=== PATIENT | female | born 1955 | race Caucasian/White ===

== ENCOUNTER 2016-08-29 21:03 | Inpatient (IN) | payer OTHER ==
[~2016-08-29] VITALS: Ht 170.2 cm; Wt 80.9 kg
--- NOTE | ~2016-08-29 | EC ---
PATIENT:ALFREDO SHELTON DATE OF SERVICE: 08/29/16 SEX: F MEDICAL RECORD: [id number] DATE OF : [birth year] LOCATION:D.M2 D.212 AGE OF PATIENT: 61 ADMISSION DATE: 08/29/16 REFERRING PHYSICIAN: INTERPRETING PHYSICIAN: MOE PALOMINO M.D. ECHOCARDIOGRAM REPORT ECHO CHARGES 4 ECHO COMPLETE CLINICAL DIAGNOSIS: ANASARCA ECHOCARDIOGRAPHIC MEASUREMENTS (adult normal given) AC root (d.<3.7cm) 3.1 LV Septum d (<1.2 cm> 1.3 Valve Excursion 1.9 LV Septum (systole) 2.1 Left Atria (s.<4.0cm> 4.6 LVPW d(<1.2cm) 1.3 RV (d.<2.3cm) 2.1 LVPW (sytole) 2.0 LV diastole(<5.6CM) 6.0 MV E-F(>70mm/sec) LV systole 3.2 LVOT Diameter 1.8 MV exc.(>10mm) Est.ejection fraction (50-75%) Pericardial Effusion N DOPPLER: LVIT A 130 E 88.0 LA RVSP 59.4 LVOT 109 AOP1/2T Asc. Ao 181 RVOT 94.0 RA PA 110 AV Gradient Peak 13.1 AV Mean 5.9 AV Area 1.5 MV Gradient Peak 6.8 MV Mean 2.1 MV Area COMMENTS: Grill Attendant: Yanna PATELOE Nuclear Reactor Technician:Ulices Palomino TAPE# PACS DATE OF SERVICE: 08/30/2016 REFERRING PHYSICIAN: John Delgado DO. INDICATION: Anasarca. DESCRIPTION: Left ventricle is mildly dilated. There is moderate LV dysfunction noted. Estimated ejection fraction is in the order of 25%-30%. Mitral valve is structurally normal. There is mild regurgitation noted. Left atrium is mildly dilated. The aortic valve is trileaflet. I do not see any ECHOCARDIOGRAM REPORT [id number] ALFREDO SHELTON stenosis or regurgitation. Right ventricle is normal in size and function. Tricuspid valve is structurally normal. There is mild regurgitation noted. Right ventricular systolic pressure is elevated at 59 mmHg. There is no pericardial effusion seen. IMPRESSION: 1. Moderate left ventricular dysfunction with ejection fraction 25%-30% consistent with cardiomyopathy. 2. Mild mitral regurgitation. 3. Moderate tricuspid regurgitation with elevated pulmonary pressures. TRANSINT:[id number] Voice Confirmation ID: [id number] DOCUMENT ID: [id number] MOE PALOMINO M.D. CC: [id number] DICTATION DATE: 08/30/16 153 PROGRESSIVE DIE MAKER: 08/30/16 1614 ADM IN [facility] [address] [place] [address]
[2016-08-29 21:37] LABS: BASOPHILS 0.3 % (0-2); EOSINOPHILS 1.2 % (0-7); HEMATOCRIT 40.4 % (36.0-48.0); HEMOGLOBIN 13.1 g/dL (12-16); IMMATURE GRANULOCYTES 0.4 % (0-5); LYMPHOCYTES 9.1 % (15-50); MCH 30.5 pg (26.0-34.0); MCHC 32.4 g/dL (31.0-37.0); MCV 94.2 fL (80.0-100.0); MEAN PLATELET VOLUME 10.1 fL (7.4-10.4); MONOCYTES 8.4 % (2-11); NEUTROPHILS 80.6 % (40-80); PLATELET COUNT 300 10x3/uL (130-400); RBC 4.29 10x6/uL (4.00-5.40); WBC 10.5 10x3/uL (4.8-10.8)
[2016-08-29 21:52] LABS: ALBUMIN 1.7 g/dL (3.4-5.0); ALKALINE PHOSPHATASE 344 U/L (46-116); ALT (SGPT) 33 U/L (10-68); BILIRUBIN - TOTAL 3.05 mg/dL (0.2-1.3); CALC OSMOLALITY 295 mosm/kg (275-300); CALCIUM 8.5 mg/dL (8.5-10.1); CARBON DIOXIDE 32.3 mmol/L (21.0-32.0); CHLORIDE - SERUM 107 mmol/L (98-107); GLUCOSE 102 mg/dL (74-106); POTASSIUM - SERUM 4.4 mmol/L (3.5-5.1); PROTEIN - SERUM 5.8 g/dL (6.4-8.2); SODIUM 145 mmol/L (136-145); UREA NITROGEN 31 mg/dL (7-18); eGFR NON AFRICAN AMERICAN 60 mL/min (90-120)
[2016-08-29 22:15] LABS: CKMB 10.8 U/L (0.0-3.6); CREATINE KINASE 275 UL (21-215); PRO BNP 13639 pg/mL (0-125)
[2016-08-29 22:19] LABS: TROPONIN-I 2.442 ng/mL (0.000-0.060)
[2016-08-29 22:56] LABS: COLOR AMBER (YELLOW)
[2016-08-29 22:57] LABS: APPEARANCE HAZY (CLEAR); BILIRUBIN NEGATIVE (NEGATIVE); GLUCOSE NEGATIVE (NEGATIVE); KETONE NEGATIVE (NEGATIVE); LEUKOCYTE ESTERASE TRACE (NEGATIVE); NITRITE NEGATIVE (NEGATIVE); PROTEIN 3+ mg/dL (NEGATIVE)
[2016-08-29 22:58] LABS: AMORPHOUS SEDIMENT <1+ /lpf (NONE SEEN); BACTERIA FEW /hpf (NONE SEEN); EPITHELIAL CELLS 0-5 /hpf (0-5); GRANULAR CAST 0-5 /lpf (NONE SEEN); HYALINE CAST 0-5 /lpf (NONE SEEN); RED CELLS - URINE 0-5 /hpf (0-5); WHITE CELLS - URINE 0-5 /hpf (0-5)
--- NOTE | 2016-08-30 00:39 | NUR ---
REPORT RECEIVED FROM KHRIS PASCUAL.
--- NOTE | 2016-08-30 01:07 | NUR ---
ARRIVED TO FLOOR VIA STRETCHER, ACCOMPANIED BY HOSPITAL STAFF. ORIENTED TO UNIT. PLACED ON TELEMETRY. CLL LIGHT IN REACH. WILL CONTINUE TO MONITOR. SEE NURSE ASSESSMENT.
[2016-08-30 04:00] VITALS: BP 137/74
[2016-08-30 08:00] VITALS: BP 132/74
--- NOTE | 2016-08-30 08:23 | NUR ---
ASSESSMENT COMPLETED. DENIES ANY NEEDS. TELEMERTY SHOWS SR 82. O2 AT 2 L/M PER NC. RIGHT AC IV WITH NS AT 100. AVIAL CATH PATENT TO GRAVITY BAG. EDEMA TO LOWER LEGS BILATERAL. REDNESS TO BUTTOCKS BUT NO BREAKDOWN WILL MONITOR
[2016-08-30 09:19] LABS: INR 1.43 (0.85-1.17); PROTIME 17.4 SECONDS (11.6-15.0)
[2016-08-30 09:24] LABS: T4 THYROXIN - FREE 1.77 ng/dL (0.76-1.46); THYROID STIMULATING HORMONE 3.01 uIU/mL (0.36-3.74)
--- NOTE | 2016-08-30 10:47 | NUR ---
RESTING QUIETLY VISITING WITH SISTER DENIES ANY NEEDS AT THIS TIME NAD NOTED
[2016-08-30 11:46] VITALS: BP 144/92
--- NOTE | 2016-08-30 12:58 | NUR ---
LYING QUIETLY. VISITORS AT BEDSIDE. NO NEEDS VOICED. WILL MONITOR
[2016-08-30 13:14] VITALS: Ht 170.2 cm; Wt 80.9 kg
--- NOTE | 2016-08-30 14:34 | NUR ---
HOB UP TALKING WITH VISITORS. DENIES ANY NEEDS. CALL LIGHT IN REACH WITH SR UP. WILL MONITOR
[2016-08-30 16:00] VITALS: BP 143/76
--- NOTE | 2016-08-30 16:00 | NUR ---
SCD'S ON BILATERAL LE
--- NOTE | 2016-08-30 17:49 | HP ---
PATIENT: ALFREDO SCHILLING MEDICAL RECORD: [id number] ACCOUNT: [id number] LOCATION:[address] : [birth year] ADMISSION DATE: 08/29/16 HISTORY AND PHYSICAL EXAMINATION HISTORY OF PRESENT ILLNESS: Ms. Schilling is a 61-year-old white female that was brought into the Emergency Room by medical services with severe anasarca, states she has not gotten out of bed for the last 9 days. Her sister came to check on her and called EMS. Swelling started 5-6 weeks ago, this started in her feet first, but has gradually worsened. She works at [employer]. She has not been able to work in a couple of weeks, wet the bed about 9 days ago and has not drink anything since then. She has elevation of her cardiac enzymes in liver function tests. She denies actually any chest pain or shortness of breath, except orthopnea. She has swelling up to the mid chest. States she drinks alcohol, a couple of beers a couple of times a week, but does not sound like really any heavy drinking. She denies any palpitations. She states she has not seen a doctor in 30 years. She takes no medications and has had no surgeries or medical issues in the past. She is comfortable right now. She is being admitted for further evaluation of her anasarca. PAST MEDICAL HISTORY: Unremarkable. PAST SURGICAL HISTORY: None. ALLERGIES: None. MEDICATIONS: None. FAMILY HISTORY: She has a sister, she is unaware of her health. Mother had hypertension. Father had diabetes and eventually ended up on dialysis. SOCIAL HISTORY: She is single. She lives alone. She works at [employer] She does not smoke. She denies any history of previous or current drug use. She states that she drink a couple beers a couple of times a week, depending on what kind of work she had. She has no children and her closest family is her sister that lives in [facility]. REVIEW OF SYSTEMS: She may have had some fever when this first started. She denies any cough. She denies any chest pain. She denies any palpitations. She does have orthopnea. She has marked edema. She has had a significant weight gain over the last 5-6 weeks. She states that she has recently had some constipation since she turned 61. Her urine output has been about the same. She denies any really seen in the way of pain. PHYSICAL EXAMINATION: HEENT: Head is normocephalic, sclerae nonicteric. NECK: Soft and supple without bruit. HEART: Regular without murmur, rub or gallop. LUNGS: With diminished breath sounds. ABDOMEN: Soft. She has marked edema from her lower extremities all the way up to mid abdomen and lower chest. No bruits were heard. NEUROLOGIC: Without any gross focal deficits. Mood and affect appear normal at this time. IMPRESSION: Anasarca, rule out congestive heart failure versus cirrhosis versus HISTORY AND PHYSICAL [id number] SCHILLING,ALFREDO protein malnutrition versus carcinomatosis versus other causes. Her BUN is elevated, but her creatinine is 1, but overall I do not think her kidney is an issue here. We will check an echo. We will check ultrasound. Check thyroid function. See orders for rest of the plan. TRANSINT:[id number] Voice Confirmation ID: [id number] DOCUMENT ID: [id number] MOJGAN BENTLEY DO at 1749 CC: [id number] DICTATION DATE: 08/30/16 0840 DIRECTOR RIVER RESTORATION: 08/30/16 1022 ADM IN [facility] [address] [place] [address]
--- NOTE | 2016-08-30 18:23 | NUR ---
HOB UP EATING. IV INFUSING WELL. SCDS ON. TELEMERTY SHOWS SR. WILL MONITOR
[2016-08-30 20:28] VITALS: BP 137/64
[2016-08-30 23:54] VITALS: BP 139/73
--- NOTE | 2016-08-31 00:29 | NUR ---
PT IV TO RIGHT AC OUT. SITE FOUND TO BE LEAKING AND CATH TIP UNDER DRESSING AND ON TOP OF PT'S SKIN. SITE CLEANSED. LEFT WRIST 22 GA X1 STICK PLACED, PT KAYLEE WELL. DRESSING PER POLICY. WILL MONITOR.
[2016-08-31 04:05] VITALS: BP 133/70
[2016-08-31 08:16] VITALS: BP 146/82
--- NOTE | 2016-08-31 10:00 | NUR ---
ALERT AND ORIENTED X4. RESTING IN BED. AVILA DRAINING BY GRAVITY AT BEDSIDE. SINUS RHTHYM 78bpm ON TELEMETRY. FAMILY AT BEDSIDE. FAMILY REQUEST TO SPEAK WITH CASE MANAGEMENT REGUARDING LIVING ARRANGEMENTS WHEN DISCHARGED. FAMILY DENIES PATIENT ABLE TO STAY WITH THEM. [place], DENTAL SCHEDULER NOTIFIED. DENIES PAIN OR SOB. CONTINUE PLAN OF CARE AND SAFETY PRECAUTIONS.
[2016-08-31 11:51] VITALS: BP 150/81
[2016-08-31 14:28] LABS: BASOPHILS 0.6 % (0-2); HEMATOCRIT 38.5 % (36.0-48.0); HEMOGLOBIN 12.7 g/dL (12-16); IMMATURE GRANULOCYTES 0.4 % (0-5); LYMPHOCYTES 13.2 % (15-50); MCH 30.8 pg (26.0-34.0); MCV 93.2 fL (80.0-100.0); MEAN PLATELET VOLUME 10.1 fL (7.4-10.4); MONOCYTES 7.3 % (2-11); NEUTROPHILS 73.5 % (40-80); RBC 4.13 10x6/uL (4.00-5.40); RDW 14.2 % (11.5-14.5)
[2016-08-31 14:32] LABS: PLATELET COUNT 237 10x3/uL (130-400); WBC 6.8 10x3/uL (4.8-10.8)
[2016-08-31 15:08] LABS: ALBUMIN 1.8 g/dL (3.4-5.0); BILIRUBIN - TOTAL 1.94 mg/dL (0.2-1.3); CALCIUM 7.6 mg/dL (8.5-10.1); CREATININE - SERUM 1.2 mg/dL (0.6-1.3); PROTEIN - SERUM 5.5 g/dL (6.4-8.2)
[2016-08-31 15:10] LABS: ANION GAP 5.1 mmol/L (8-16); POTASSIUM - SERUM 3.1 mmol/L (3.5-5.1)
[2016-08-31 16:42] VITALS: BP 183/96
--- NOTE | 2016-08-31 16:56 | NUR ---
Patient Name: ALFREDO SHELTON Admission Status: ER Accout number: [id number] Admission Date: 08-29-2016 : 1955 Admission Diagnosis:GENERALIZED EDEMA Attending: ZEUS Current LOS: 2 Anticipated DC Date: Planned Disposition: Home Primary Insurance: MESSI Discharge Planning Comments: * Is the patient Alert and Oriented? Yes 0 * How many steps to enter\exit or inside your home? 10 0 * PCP UNKNOWN PRIMARY CARE DOCTOR; HAS BEEN TO DOCTOR IN RECENT HISTORY 0 * Pharmacy [facility] [address] * Preadmission Environment Home Alone 0 * ADLs Independent 0 * Equipment None 0 * Other Equipment NO MEDICAL EQUIPMENT PROVIDER PREFERENCE 0 * List name and contact numbers for known caregivers / representatives who currently or will assist patient after discharge: MARKELL LOPEZ, SISTER, [address] [place] [address], [place], 0 * Community resources currently utilized None 0 * Please name any agencies selected above. NONE 0 * Additional services required to return to the preadmission environment? Yes * Can the patient safely return to the preadmission environment? No 0 * Has this patient been hospitalized within the prior 30 days at any hospital? No 0 ON 08-30-16, KILEY RECEIVED CALL FROM SABINA ROBINS, , OF [facility] WHO REPORTS HAVING OPEN REFERRAL ON PATIENT; SABINA WILL BE TO HOSPITAL TODAY TO MEET WITH PT AND COLLECT MEDICAL RECORDS. SABINA OF [facility] ARRIVED, MET WITH PT AND ADVISED CM THAT SHE HAS MET WITH PT AND FAMILY, PT AND FAMILY ARE IN AGREEMENT THAT PT WILL DISCHARGE TO HER SISTER'S HOME, MARKELL LOPEZ AT [address] [place] [address] PT'S HOME IS NO LIVEABLE. CM PROVIDED BASIC MEDICAL INFORMATION TO SABINA OF [facility]. [facility] IS NOT TAKING HOLD ON PATIENT AT THIS TIME. KILEY SPOKE TO ALFREDO HOLDER, NURSE THEATER USHER FOR PT'S EMPLOYER; THEY WILL PROVIDE PT'S INSURANCE INFORMATION TO HOSPITAL AND ASSIST WITH PROVIDING IN NETWORK PROVIDERS FOR SERVICES IF PT NEEDS ANYTHING. ALFREDO WILL PROVIDE PT WITH [facility] PAPERWORK. CM MET WITH PT AND FAMILY ON 08-31-16 IN ROOM AT FAMILY REQUEST. PT REPORTS SHE WAS LIVING AT HOME ALONE AND INDEPENDENTLY WITH NO MEDICAL EQUIPMENT OR OUTSIDE SERVICES. PT HAS NOT BEEN TO THE DOCTOR FOR MOST OF HER ADULT LIFE. PT GOT SICK AND WAS LAID UP IN BED FOR ABOUT 7 DAYS AND WAS CORRECTED BY HER SISTER WHO REPORTS PT WAS NOT OUT OF BED FOR TWO WEEKS. 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 PT REPORTS PLAN TO DISCHARGE TO HER SISTER'S HOME ON [address] AND THEY ARE GOING TO HELP HER GET SET UP IN A PLACE OF HER OWN. PT'S SISTER AGREED WITH PLAN. CM LEFT ROOM, PT'S SISTER, BROTHER IN LAW AND ROMAN FOLLOWED CM OUT OF THE ROOM AND SPOKE TO PT IN HALLWAY. FAMILY REPORTS PT CANNOT COME TO THEIR HOUSE AT DISCHARGE. PT'S BROTHER IN LAW BEGAN INFORMING CM THAT PT IS MENTALLY ILL AND INFORMING CM OF THE CONDITION OF PT'S HOME. CM EXPLAINED THAT CM HAS BEEN TOLD ABOUT THE HOME; CM INFORMED FAMILY THAT PT NEEDS TO BE TOLD THAT SHE CANNOT GO TO THE SISTER'S HOME SO THAT PT AND CM CAN MOVE ON WITH DISCHARGE PLANNING. FAMILY FORCEFULLY DIRECTED CM TO NOT TELL PT AND THAT THEY HAVE ENOUGH BACKBONE TO DO IT THEMSELVES, JUST THAT NOW IS NOT THE TIME. 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 CM EXPLAINED THAT DISCHARGE PLANNING NEEDS TO BEGIN NOW AND NOT WAIT UNTIL THE DAY BEFORE OR THE DAY OF DISCHARGE, THAT CM MAY BE ABLE TO DIRECT PT ON WHERE TO SEEK HOUSING. PT'S SISTER REPORTS SHE IS GOING TO TRY TO HELP PT GET INTO THE [employer] OR SOMEWHERE LIKE THAT AND THEY WILL TELL THE PT THAT SHE IS NOT COMING TO THEIR HOME. CM NOTIFIED SABINA SHIMON OF [facility]. CM PROVIDED PT WITH [facility] AUTHORITY APPLICATION FOR HOUSING ALONG WITH CM CONTACT INFORMATION. CM WAITING FAMILY TO MAKE DECISION ON IF PT CAN COME TO SISTERS' HOME AT DISCHARGE AND IF NOT, TO NOTIFY PT OF THIS SO THAT PT AND CM CAN DEVELOP FURTHER DISCHARGE PLANS TO MEET PT'S NEEDS. Electronic Heat Seal Operator: Dariusz Dubose
--- NOTE | 2016-08-31 18:14 | NUR ---
ALERT AND ORIENTED X4. SITTING UP IN BED. DENIES NEEDS. NO CHANGE. CONTINUE PLAN OF CARE AND SAFETY PRECAUTIONS. SCDs ON.
[2016-08-31 20:29] VITALS: BP 135/77
[2016-09-01 00:10] VITALS: BP 164/87
--- NOTE | 2016-09-01 03:09 | NUR ---
THIS PM, PT AWAKE AND ALERT. CO LEG PAIN. GENERALIZED EDEMA NOTED. COOL AND DRY WILL CONTINUE TO MONITOR.
[2016-09-01 05:28] VITALS: BP 157/81
[2016-09-01 06:03] LABS: BASOPHILS 0.5 % (0-2); EOSINOPHILS 4.9 % (0-7); HEMATOCRIT 38.7 % (36.0-48.0); HEMOGLOBIN 12.7 g/dL (12-16); IMMATURE GRANULOCYTES 0.3 % (0-5); LYMPHOCYTES 16.2 % (15-50); MCH 30.2 pg (26.0-34.0); MCHC 32.8 g/dL (31.0-37.0); MCV 91.9 fL (80.0-100.0); MEAN PLATELET VOLUME 10.6 fL (7.4-10.4); MONOCYTES 7.9 % (2-11); NEUTROPHILS 70.2 % (40-80); PLATELET COUNT 220 10x3/uL (130-400); RBC 4.21 10x6/uL (4.00-5.40); RDW 13.9 % (11.5-14.5); WBC 6.3 10x3/uL (4.8-10.8)
[2016-09-01 06:32] LABS: ALBUMIN 1.7 g/dL (3.4-5.0); CALCIUM 7.9 mg/dL (8.5-10.1); CREATININE - SERUM 1.2 mg/dL (0.6-1.3); PROTEIN - SERUM 5.7 g/dL (6.4-8.2)
[2016-09-01 08:20] VITALS: BP 185/96
[2016-09-01 12:27] VITALS: BP 145/75
[2016-09-01 16:02] VITALS: BP 163/79
--- NOTE | 2016-09-01 19:57 | NUR ---
RESTING IN BED. ALERT/ORIENTED. SR PER TELEMETRY. AVILA PATENT TO BEDSIDE DRAIN. IV TO LEFT WRIST WITH BUMEX DRIP AT 10ML/HR. SEE ASSESSMENT. CPOC.
[2016-09-01 20:00] VITALS: BP 123/70
--- NOTE | 2016-09-01 22:17 | NUR ---
HS MEDS GIVEN. BUMEX DRIP AT 10ML/HR INFUSING. AVILA PATENT TO BEDSIDE DRAIN BAG. CPOC.
[2016-09-02] VITALS (11 sets, daily range): BP systolic 122–143; BP diastolic 56–77
[2016-09-02 06:26] LABS: BASOPHILS 0.5 % (0-2); EOSINOPHILS 4.4 % (0-7); HEMATOCRIT 36.7 % (36.0-48.0); HEMOGLOBIN 12.3 g/dL (12-16); IMMATURE GRANULOCYTES 0.4 % (0-5); LYMPHOCYTES 14.3 % (15-50); MCH 30.8 pg (26.0-34.0); MCHC 33.5 g/dL (31.0-37.0); MCV 91.8 fL (80.0-100.0); MEAN PLATELET VOLUME 10.9 fL (7.4-10.4); MONOCYTES 7.7 % (2-11); NEUTROPHILS 72.7 % (40-80); PLATELET COUNT 231 10x3/uL (130-400); WBC 7.6 10x3/uL (4.8-10.8)
[2016-09-02 06:43] LABS: ALBUMIN 1.6 g/dL (3.4-5.0); BILIRUBIN - TOTAL 1.9 mg/dL (0.2-1.3); CALCIUM 7.7 mg/dL (8.5-10.1); CARBON DIOXIDE 38.8 mmol/L (21.0-32.0); CREATININE - SERUM 1.2 mg/dL (0.6-1.3); PROTEIN - SERUM 5.6 g/dL (6.4-8.2)
[2016-09-02 06:46] LABS: ANION GAP 3.2 mmol/L (8-16)
--- NOTE | 2016-09-02 08:05 | NUR ---
ASSESSMENT DONE. DENIES NEEDS.
--- NOTE | 2016-09-02 09:09 | NUR ---
UP TO CHAIR WITH PT ASSIST. CALL LIGHT IN REACH. WILL CONT. PLAN OF CARE.
[2016-09-02 10:19] LABS: HEPATITIS C ANTIBODY <0.1 (0.0-0.9)
[2016-09-02 10:56] LABS: INR 0.98 (0.85-1.17); PROTIME 12.8 SECONDS (11.6-15.0)
--- NOTE | 2016-09-02 13:12 | NUR ---
Nutrition follow-up: Diet: low sodium, 50 gm protein diet PO intake has been 50-75% of meals Labs reviewed no new wt to assess PO intake has been fair to good at meals. Will continue to provide food choices with selective menus and honor food preferences within diet restictions. RDN following.
--- NOTE | 2016-09-02 15:39 | NUR ---
RETURN FROM IR PER BED. DRSG X 2 TO RT LOWER QUAD.
--- NOTE | 2016-09-02 17:42 | NUR ---
Patient Name: ALFREDO SHELTON Encounter No: [id number] : 1955 Primary Insurance: MESSI Anticipated DC Date: Planned Disposition: [facility] FACILITY External Planned Provider: [facility], COMMERCIAL INSURANCE REHAB BED DCP follow-up note: CM SPOKE TO SABINA ROBINS OF [facility], PT IS NOT GOING HOME WITH HER SISTER AND FAMILY IS ASSISTING PT WITH FINDING AND APARTMENT FOR HERSELF. CM RECEIVED CALL FROM QUINN OF PT'S INSURANCE CASE MANAGEMENT, , EXT. [phone], WHO CALLED PT AND DISCUSSED REHAB OPTIONS, FAXED CM LIST OF APPROVED [facility] FACILITIES COVERED BY PT'S INSURANCE: [facility], [facility], [facility] AND [facility]. PT HAS UNTIL SEPTEMBER 09 TO SUBMIT HER [facility] PAPERWORK TO HER EMPLOYER IF SHE WISHES TO PROTECT HER JOB. CM DISCUSSED ABOVE INFORMATION WITH PT, PT THINKS SHE WILL GET WELL ENOUGH TO DISCHARGE WITHOUT REHAB, BUT WOULD LIKE CM TO SEND REFERRAL TO [facility] IN CASE SHE NEEDS IT. CHOICE SIGNED. CM FAXED REFERRAL TO [facility], . KILEY WAITING ADMISSION DETERMINATION FROM [facility] IN [place] FOR REHAB. Dariusz Dubose, CASE MANAGEMENT
[2016-09-03 00:23] VITALS: BP 125/57
[2016-09-03 04:13] VITALS: BP 124/50
[2016-09-03 06:00] LABS: BASOPHILS 0.2 % (0-2); EOSINOPHILS 4.6 % (0-7); HEMATOCRIT 33.7 % (36.0-48.0); HEMOGLOBIN 11.3 g/dL (12-16); IMMATURE GRANULOCYTES 0.3 % (0-5); LYMPHOCYTES 14.4 % (15-50); MCH 30.8 pg (26.0-34.0); MCHC 33.5 g/dL (31.0-37.0); MCV 91.8 fL (80.0-100.0); MEAN PLATELET VOLUME 11.1 fL (7.4-10.4); MONOCYTES 8.3 % (2-11); NEUTROPHILS 72.2 % (40-80); PLATELET COUNT 210 10x3/uL (130-400); RBC 3.67 10x6/uL (4.00-5.40)
[2016-09-03 06:18] LABS: ALBUMIN 1.7 g/dL (3.4-5.0); ANION GAP 3.2 mmol/L (8-16); BILIRUBIN - TOTAL 1.9 mg/dL (0.2-1.3); CALCIUM 7.3 mg/dL (8.5-10.1); CARBON DIOXIDE 36.9 mmol/L (21.0-32.0); CREATININE - SERUM 1.3 mg/dL (0.6-1.3); POTASSIUM - SERUM 3.1 mmol/L (3.5-5.1); PROTEIN - SERUM 4.8 g/dL (6.4-8.2)
--- NOTE | 2016-09-03 07:00 | NUR ---
PT K+ LEVEL RESULTS 3.1 THIS AM. KCL 40 MEQ PO GIVEN. NEXT POTASSIUM REDRAW ORDERED FOR 11:00 AM.
[2016-09-03 08:08] VITALS: BP 129/52
--- NOTE | 2016-09-03 08:16 | NUR ---
SITTING UP IN BED EATING BREAKFAST. NO DISTRESS
--- NOTE | 2016-09-03 09:50 | NUR ---
Patient Name: ALFREDO SHELTON Encounter No: [id number] : 1955 Primary Insurance: MESSI Anticipated DC Date: Planned Disposition: RESIDENTIAL FACLILITY External Planned Provider: [facility], [employer] INSURANCE REHAB BED DCP follow-up note: CM MET WITH PT IN ROOM, PROVIDED WELCOME LETTER TO PT FROM HER INDUSTRIAL REFRIGERATION MECHANIC, KOBE BAILEY, , EXT [phone]; PT SIGNED AUTHORIZATION TO PARTICIPATE IN CASE MANAGMENT WITH LIAM AND ILANA. COPY TO PT, ORIGINAL TO CHART. CM INFORMED PT THAT THE REFERRAL TO [facility] FOR REHAB WAS SENT LAST NIGHT, WAITING ON REVIEW AND INSURANCE AUTHORIZATION. PT IN AGREEMENT WITH DISCHARGE PLAN TO REHAB, "IF" SHE NEEDS IT. PT STILL THINKING THAT SHE IS GOING TO BE ABLE TO GO TO A NEW APARTMENT SAFELY AT DISCHARGE BUT IS NOT WALKING HOUSEHOLD DISTANCES OR TRANSFERRING WITHOUT ASSISTANCE. ADULT PROTECTIVE SERVICES CONTINUES TO FOLLOW AND WILL BE FOLLOWING UP WITH PT AFTER DISCHARGE. PT'S SISTER IS ASSISTING PT IN LOCATING NEW HOUSING. KILEY WAITING ADMISSION DETERMINATION FROM [facility] IN [place] FOR REHAB. Dariusz Dubose, CASE MANAGEMENT
[2016-09-03 11:24] VITALS: BP 110/53
[2016-09-03 12:17] LABS: ANTINUCLEAR ANTIBODIES DIRECT Positive (Negative); DOUBLE-STRANDED DNA ABS <1 IU/mL (0-9)
[2016-09-03 14:19] LABS: COMPLEMENT C3 108 mg/dL (90-207)
[2016-09-03 15:39] VITALS: BP 116/56
--- NOTE | 2016-09-03 16:04 | NUR ---
Patient Name: ALFREDO SHELTON Encounter No: [id number] : 1955 Primary Insurance: MESSI Anticipated DC Date: Planned Disposition: [facility] FACILITY External Planned Provider: [facility], COMMERCIAL INSURANCE REHAB BED DCP follow-up note: CM CALLED [facility], , SPOKE TO MARINA WHO ADVISED THAT SHE CANNOT FIND THE REFERRAL AND ASKED THAT IT BE REFAXED TO [facility]. CM REFAXED ENTIRE REFERRAL WITH TODAY'S UPDATE TO [facility] AT [phone]. ADULT [facility] SERVICES CONTINUES TO FOLLOW AND WILL BE FOLLOWING UP WITH PT AFTER DISCHARGE. PT'S SISTER IS ASSISTING PT IN LOCATING NEW HOUSING. CM WAITING ADMISSION DETERMINATION FROM [facility] IN [place] FOR REHAB. Dariusz Dubose, CASE MANAGEMENT
[2016-09-03 20:21] VITALS: BP 115/70
[2016-09-04 00:25] VITALS: BP 123/58
[2016-09-04 04:33] VITALS: BP 112/54
[2016-09-04 05:40] LABS: BASOPHILS 0.4 % (0-2); HEMATOCRIT 33.6 % (36.0-48.0); IMMATURE GRANULOCYTES 0.4 % (0-5); LYMPHOCYTES 15.8 % (15-50); MCH 30.1 pg (26.0-34.0); MCHC 32.7 g/dL (31.0-37.0); MCV 92.1 fL (80.0-100.0); MEAN PLATELET VOLUME 11.4 fL (7.4-10.4); MONOCYTES 7.3 % (2-11); NEUTROPHILS 72.1 % (40-80); PLATELET COUNT 224 10x3/uL (130-400); RBC 3.65 10x6/uL (4.00-5.40); RDW 14.2 % (11.5-14.5); WBC 8.2 10x3/uL (4.8-10.8)
[2016-09-04 05:46] LABS: ALBUMIN 1.7 g/dL (3.4-5.0); ANION GAP 4.2 mmol/L (8-16); BILIRUBIN - TOTAL 1.7 mg/dL (0.2-1.3); CALCIUM 7.2 mg/dL (8.5-10.1); CARBON DIOXIDE 36.3 mmol/L (21.0-32.0); CREATININE - SERUM 1.3 mg/dL (0.6-1.3); POTASSIUM - SERUM 3.5 mmol/L (3.5-5.1); PROTEIN - SERUM 4.9 g/dL (6.4-8.2)
--- NOTE | 2016-09-04 07:30 | NUR ---
RESTING QUIETLY RESP UNLABORED NAD NOTED
--- NOTE | 2016-09-04 07:30 | NUR ---
ASSESSMENT COMPLETED. ALERT AND ORINTED. O2 AT 2 L/M PER NC. TELEMERTY SHOWSSR WITH OCC PVCS. AVILA CATH PAINTENT TO GRAVITY BAG, LEFT WRIST WITH NS AT 15 AND BUMEX AT 5. DENIES ANY NEEDS. SR UP WITH CALL LIGHT IN REACH
--- NOTE | 2016-09-04 07:45 | NUR ---
ASSESSMENT COMPLETED. O2 AT AT 2 L/M . LEFT WRIST WITH NS 15 AND BUMEX AT S. AVILA CATH PATENT TO GRAVITY BAG. SR UP WITH CALL LIGHT IN REACH WILL MONITOR
[2016-09-04 08:01] VITALS: BP 137/65
[2016-09-04 11:34] VITALS: BP 149/75
[2016-09-04 15:42] VITALS: BP 155/71
--- NOTE | 2016-09-04 18:04 | NUR ---
LYING QUIETLY. DENIES ANY NEEDS CALL LIGHT IN REACH WITH SR UP
[2016-09-04 18:32] LABS: PROTEIN - BODY FLUID 1.9 G/DL
[2016-09-04 20:00] VITALS: BP 147/68
--- NOTE | 2016-09-04 20:49 | NUR ---
PT RESTING IN BED WITH NO DISTRESS. ALERT/ORIENTED. NONLABORED RESPIRATIONS WITH O2 @ 2L/NC. SR PER TELEMETRY. AVILA PATENT TO BEDSIDE DRAIN BAG. NS @ 15ML/HR AND BUMEX AT 5ML/HR INFUSING TO LEFT WRIST. CALL LIGHT IN REACH.
--- NOTE | 2016-09-04 21:52 | NUR ---
HS MED GIVEN. PT WATCHING TV. CALL LIGHT IN REACH. CPOC.
[2016-09-05 04:00] VITALS: BP 123/61
[2016-09-05 05:38] LABS: BASOPHILS 0.4 % (0-2); EOSINOPHILS 3.4 % (0-7); HEMATOCRIT 34.5 % (36.0-48.0); HEMOGLOBIN 11.3 g/dL (12-16); IMMATURE GRANULOCYTES 0.5 % (0-5); LYMPHOCYTES 16.2 % (15-50); MCH 30.1 pg (26.0-34.0); MCHC 32.8 g/dL (31.0-37.0); MEAN PLATELET VOLUME 11.3 fL (7.4-10.4); MONOCYTES 6.6 % (2-11); NEUTROPHILS 72.9 % (40-80); PLATELET COUNT 228 10x3/uL (130-400); RBC 3.75 10x6/uL (4.00-5.40); RDW 14.1 % (11.5-14.5); WBC 8.5 10x3/uL (4.8-10.8)
[2016-09-05 06:02] LABS: ALBUMIN 1.8 g/dL (3.4-5.0); ANION GAP 3.7 mmol/L (8-16); BILIRUBIN - TOTAL 1.87 mg/dL (0.2-1.3); CALCIUM 7.9 mg/dL (8.5-10.1); CARBON DIOXIDE 39.7 mmol/L (21.0-32.0); CREATININE - SERUM 1.3 mg/dL (0.6-1.3); POTASSIUM - SERUM 3.4 mmol/L (3.5-5.1); PROTEIN - SERUM 5.2 g/dL (6.4-8.2)
--- NOTE | 2016-09-05 07:30 | NUR ---
RESTING QUIETLY EYES CLOSED RESP UNLABORED NAD NOTED
[2016-09-05 08:00] VITALS: BP 119/60
--- NOTE | 2016-09-05 08:07 | NUR ---
ASSESSMENT COMPLETED.TELEMERTY SHOWS SR AT 69.IV TO LEFT AC WITH NS AT 15 AND BUMEX AT 5. AVILA CATH PATENT TO GRAVITY BAG. DENIES ANY NEEDS. SR UP WITH CALL LIGHT IN REACH. WILL MONITOR
[2016-09-05 12:00] VITALS: BP 132/60
[2016-09-05 16:00] VITALS: BP 122/67
[2016-09-05 19:55] VITALS: BP 131/59
[2016-09-05 23:33] VITALS: BP 129/63
[2016-09-06 03:44] VITALS: BP 116/52
--- NOTE | 2016-09-06 06:35 | NUR ---
PT HAS RESTED WELL THIS NIGHT. IV BUMEX INFUSING WITH OUTPUT OF 2200ML URINE THIS SHIFT. CURRENTLY AWAKE/ALERT AND WATCHING TV. VERY PLEASANT AND COOPERATIVE. MONITOR AND CPOC. CALL LIGHT IN REACH.
[2016-09-06 07:39] LABS: CALCIUM 7.9 mg/dL (8.5-10.1); CREATININE - SERUM 1.3 mg/dL (0.6-1.3); POTASSIUM - SERUM 3.6 mmol/L (3.5-5.1)
[2016-09-06 07:45] LABS: ANION GAP 5.6 mmol/L (8-16)
[2016-09-06 08:01] VITALS: BP 130/61
--- NOTE | 2016-09-06 08:48 | NUR ---
AWAKE . EATING BREAKFAST. CO ACHING IN BUTTOCKS. MEDICATED ACCORDINGLY. WILL CONTINUE TO MONITOR.
[2016-09-06 12:09] VITALS: BP 95/46
--- NOTE | 2016-09-06 13:13 | NUR ---
WOUND CARE CONSULT: Pt is c/o her bottom (at the tailbone) being sore. Blanchable redness is noted. There is also some excoriation at gluteal folds. Covered sacral area with mepilex sacral dressing and ordered calmoseptine cream for excoriation. Also ordered an air overlay mattress. Wound care will continue to monitor.
[2016-09-06 16:36] VITALS: BP 118/54
--- NOTE | 2016-09-06 16:49 | NUR ---
Rehab Note- Acute Rehab Prescreen order received. The patient has [employer] insurance and will need a PreAuth from insurance prior to acute rehab stay. Brennen start PreAuth process. Thank you for this referral! Ana M Barrientos RN Clinical Liaison, [facility] Rehab/[facility]
--- NOTE | 2016-09-06 20:00 | NUR ---
PT RECEIVED LYING IN BED WATCHING TV AT THIS TIME. AAOX3. ASSESSMENT COMPLETED PER FLOW SHEET AT THIS TIME. PT DENIES NEEDS. BED LOW. PHONE AND CALL LIGHT IN REACH. SRX2.
[2016-09-06 21:42] VITALS: BP 115/64
--- NOTE | 2016-09-06 22:21 | NUR ---
ALDACTONE PO GIVEN AT THIS TIME. PT DENIES NEEDS. BED LOW. PHONE AND CALL LIGHT IN REACH. SRX2.
[2016-09-06 23:39] VITALS: BP 122/57
--- NOTE | 2016-09-07 00:40 | NUR ---
PT RESTING QUIETLY AT THIS TIME WITH EYES CLOSED. RESPIRATIONS EVEN, NON-LABORED. NO ACUTE DISTRESS NOTED AT THIS TIME. BED LOW. PHONE AND CALL LIGHT IN REACH. SRX2.
[2016-09-07 04:01] VITALS: BP 120/57
[2016-09-07 06:01] LABS: BASOPHILS 0.5 % (0-2); EOSINOPHILS 3.5 % (0-7); HEMATOCRIT 31.2 % (36.0-48.0); HEMOGLOBIN 10.3 g/dL (12-16); IMMATURE GRANULOCYTES 0.4 % (0-5); LYMPHOCYTES 16.5 % (15-50); MCH 30.4 pg (26.0-34.0); MEAN PLATELET VOLUME 12.1 fL (7.4-10.4); MONOCYTES 9.5 % (2-11); NEUTROPHILS 69.6 % (40-80); PLATELET COUNT 253 10x3/uL (130-400); RBC 3.39 10x6/uL (4.00-5.40); RDW 14.4 % (11.5-14.5); WBC 7.3 10x3/uL (4.8-10.8)
--- NOTE | 2016-09-07 06:13 | NUR ---
ADMINISTERED PROTONIX PO PER ORDERS AT THIS TIME. PT DENIES NEEDS. BED LOW. PHONE AND CALL LIGHT IN REACH. SRX2.
[2016-09-07 06:14] LABS: INR 1.03 (0.85-1.17); PROTIME 13.4 SECONDS (11.6-15.0)
[2016-09-07 06:25] LABS: ALBUMIN 1.7 g/dL (3.4-5.0); ANION GAP 4.6 mmol/L (8-16); BILIRUBIN - TOTAL 1.63 mg/dL (0.2-1.3); CALCIUM 8.1 mg/dL (8.5-10.1); CREATININE - SERUM 1.4 mg/dL (0.6-1.3); POTASSIUM - SERUM 3.6 mmol/L (3.5-5.1); PROTEIN - SERUM 5.1 g/dL (6.4-8.2)
--- NOTE | 2016-09-07 08:19 | NUR ---
AWAKE AND ALERT EATING BREAKFAST. NO APPARENT DISTRESS.
[2016-09-07 08:26] VITALS: BP 118/57
--- NOTE | 2016-09-07 10:51 | NUR ---
09/07/2016 10:48 DCP: Discharge Planning Fax to [facility] - verified fax number with Lashaun. Requested alternate fax number - given [phone]. Referral faxed.
[2016-09-07 11:15] VITALS: BP 93/50
--- NOTE | 2016-09-07 13:43 | NUR ---
IV RESTARTED IN R FOREARM WITH 20G ON 1ST ATTEMPT.
[2016-09-07 15:44] VITALS: BP 118/64
--- NOTE | 2016-09-07 16:44 | NUR ---
09/07/2016 16:40 DCP: Discharge Planning Rec'd call from Shirley with [facility] - she is requesting referrals be sent to [facility] and to [facility] - She states they will negotiate with both for SNF placement. Discussed with patient - she is agreeable. SAIMA signed. Referrals faxed to both facilities. CM will follow.
--- NOTE | 2016-09-07 18:07 | CN ---
PATIENT NAME:ALFREDO SCHILLING MEDICAL RECORD: [id number] : 57 LOCATION:D. D.2128 ADMIT DATE: 08/29/16 ACCOUNT: [id number] CONSULTING PHYSICIAN: NICOLE MCDANIEL MD REFERRING PHYSICIAN: MOJGAN BENTLEY DO DATE OF CONSULTATION: 09/03/2016 Cardiology Consultation DIAGNOSES: 1. Cardiomyopathy, ejection fraction 25%. 2. Alcoholic. 3. Cirrhosis. 4. Anasarca. HISTORY OF PRESENT ILLNESS: Mrs. Schilling presents with 2-3 weeks of gross anasarca, lower extremity swelling, found to have significant cirrhosis. She has undergone paracentesis by interventional radiology. Echocardiogram reveals an ejection fraction in the 25% range. Global hypokinesis, pulmonary systolic pressure is elevated approximately at 60 mmHg. She has had heavy drinking all her life. This is most likely alcoholic cardiomyopathy as is the cirrhosis. PHYSICAL EXAMINATION: GENERAL APPEARANCE: Well-nourished, well-developed, appears stated age. Level of distress, comfortable. PSYCHIATRIC: Mental status, alert, normal affect. Orientation, oriented to time, place and person. EYES: Lids and conjunctiva, noninjected. No discharge, no pallor. ENT: Lips, teeth, gums, normal dentition. Oropharynx, no cyanosis, no pallor. NECK: Carotid arteries, bilateral normal upstroke, no bruits, no thrills. JUGULAR VEINS: No jugular venous pressure or distention. CERVICAL LYMPH NODES: Nontender, nonenlarged. THYROID: Not enlarged. Nontender. No nodules. LUNGS: Respiratory effort, unlabored. CHEST: Normal curvature. No thoracic deformity. No chest wall tenderness. Percussion, resonant. Auscultation, clear. No wheezes, no rales, no rhonchi. CARDIOVASCULAR: Precordial exam, nondisplaced. No heaves or pericardial thrills. Rate and rhythm, regular. Heart sounds, normal S1, normal S2. No S3, no gallop, no rub. Systolic murmur, not heard. Diastolic murmur, not heard. EXTREMITIES: Lower extremities have +4 pitting edema. ABDOMEN: Soft, nondistended. Normal aorta. No bruit. Nontender. No masses. Liver, nontender, no hepatomegaly. Spleen, nontender, no splenomegaly. MUSCULOSKELETAL: No joint tenderness. No joint swelling. No erythema. NEUROLOGICAL: Normal gait, normal strength, normal tone. SKIN: Warm and dry. REVIEW OF SYSTEMS: The patient reports easy bruising but reports no swollen glands. The patient reports no fever, no night sweats, no significant weight gain, no significant weight loss. No significant exercise tolerance. The patient reports no dry eyes, no irritation, no vision change. Patient reports no difficulty hearing and no ear pain. Patient reports no frequent nose bleeds or nose and sinus problems. Patient reports on arm pain on exertion. No shortness of breath while lying down. No history of heart murmur. Patient reports no cough, no wheezing or coughing up blood. Patient reports no abdominal pain, no vomiting. Normal appetite. No diarrhea and not vomiting CONSULT REPORT [id number] SCHILLING,ALFREDO blood. No nausea and no constipation. Patient reports no incontinence. No difficulty urinating. No hematuria. No increased frequency. Patient reports no muscle aches. No weakness, no arthralgias, no back pain. No swelling of the extremities. Patient reports no abnormal mole, no jaundice, no rashes. Reports no loss of consciousness. No weakness and no numbness. No seizures, dizziness, or headaches. The patient reports no depression, no sleep disturbance, feeling safe in a relationship and no alcohol abuse. Patient reports on fatigue. Reports no runny nose or sinus pressure. No itching, no hives, and no frequent sneezing. OVERALL IMPRESSION: Alcoholic cardiomyopathy. At this time, this will be on medical management. She is on a low dose of carvedilol only at 3.125. Her heart rate and blood pressure are still high. We will increase the carvedilol. She is on Aldactone and Bumex. We will continue these. Medical management of the cardiomyopathy. TRANSINT:[id number] Voice Confirmation ID: [id number] DOCUMENT ID: [id number] NICOLE MCDANIEL MD at 1807 CC: [id number] DICTATION DATE: 09/03/16935 CUSTOM WOOD STAIR BUILDER: 09/03/1652 ADM IN [facility] [address] [place] [address]
[2016-09-07 20:19] VITALS: BP 121/63
--- NOTE | 2016-09-07 21:40 | NUR ---
HS MED GIVEN. PT SIT IN BED AND WATCH TV.
[2016-09-08 00:41] VITALS: BP 118/55
--- NOTE | 2016-09-08 01:43 | NUR ---
PT REST QUIETLY IN BED, EYE CLOSE, CALL LIGHT WITHIN REACH.
[2016-09-08 04:23] VITALS: BP 132/57
[2016-09-08 05:48] LABS: BASOPHILS 0.6 % (0-2); EOSINOPHILS 2.7 % (0-7); HEMATOCRIT 30.4 % (36.0-48.0); HEMOGLOBIN 10.2 g/dL (12-16); IMMATURE GRANULOCYTES 0.4 % (0-5); LYMPHOCYTES 20.1 % (15-50); MCH 30.5 pg (26.0-34.0); MCHC 33.6 g/dL (31.0-37.0); MEAN PLATELET VOLUME 11.2 fL (7.4-10.4); MONOCYTES 10.3 % (2-11); NEUTROPHILS 65.9 % (40-80); PLATELET COUNT 264 10x3/uL (130-400); RBC 3.34 10x6/uL (4.00-5.40); RDW 14.5 % (11.5-14.5); WBC 8.2 10x3/uL (4.8-10.8)
[2016-09-08 06:13] LABS: ALBUMIN 1.7 g/dL (3.4-5.0); ANION GAP 9.3 mmol/L (8-16); BILIRUBIN - TOTAL 1.69 mg/dL (0.2-1.3); CALCIUM 8.1 mg/dL (8.5-10.1); CARBON DIOXIDE 37.3 mmol/L (21.0-32.0); CREATININE - SERUM 1.5 mg/dL (0.6-1.3); POTASSIUM - SERUM 3.6 mmol/L (3.5-5.1); PROTEIN - SERUM 5.3 g/dL (6.4-8.2)
[2016-09-08 08:00] VITALS: BP 134/59
[2016-09-08 08:43] LABS: % SATURATION 35 % (15-55); IRON 44 ug/dl (35-150); TOTAL IRON BIND CAPACITY 124 ug/dl (260-445); UNSAT IRON BIND CAPACITY 80 ug/dl (150-375)
--- NOTE | 2016-09-08 10:29 | NUR ---
PT RUNNING LOW GRADE TEMP OF 99.3. NO TYLENOL ALLOWED R/T LIVER ISSUES. PROVIDED PT WITH IBUPROFEN AND WILL CONTINUE TO MONITER.
[2016-09-08 12:00] VITALS: BP 123/60
--- NOTE | 2016-09-08 12:49 | NUR ---
PTS BUMEX DRIP IS NOW EMPTY. REPLACED WITH NEW BAG. PT RESTING QUIETLY IN BED AND STATES LUNCH WAS GOOD. DENIES ANY CURRENT PAIN OR NEEDS. CL IN REACH. WILL CTM.
--- NOTE | 2016-09-08 15:10 | NUR ---
Rehab Note- Voicemail left for Lety @ [phone] ext.[phone], awaiting return call on determination of PreCert for Acute Rehab. Will continue to follow the patient at this time. Ana M Barrientos RN Clinical Liaison, [facility] Rehab/Bell
--- NOTE | 2016-09-08 15:51 | NUR ---
Rehab Note- received call from Lety Person for [facility], stated that the patient is going to go to a local SNF unit and closing the acute rehab case for the patient. Thank you for this referral! Ana M Barrientos RN Clinical Liaison, [facility] Rehab/[facility]
[2016-09-08 15:52] VITALS: BP 114/46
[2016-09-08 19:00] VITALS: BP 152/62
--- NOTE | 2016-09-08 20:25 | NUR ---
PT RECEIVED SITTING UP IN BED WATCHING TV AT THIS TIME. AAOX3. ASSESSMENT COMPLETED PER FLOW SHEET AT THIS TIME. IV NOTED TO RIGHT F/A INFUSING BUMEX @ 5 CC/HR. PT DENIES NEEDS. BED LOW. PHONE AND CALL LIGHT IN REACH. SRX2.
--- NOTE | 2016-09-08 22:22 | NUR ---
ALDACTONE GIVEN PO AT THIS TIME PER ORDERS. PT DENIES NEEDS. BED LOW. PHONE AND CALL LIGHT IN REACH. SRX2.
--- NOTE | 2016-09-09 00:14 | NUR ---
PT SITTING UP IN BED WATCHING TV AT THIS TIME. DENIES NEEDS. BED LOW. PHONE AND CALL LIGHT IN REACH. SRX2.
[2016-09-09 04:00] VITALS: BP 120/57
--- NOTE | 2016-09-09 04:45 | NUR ---
PT LYING IN BED RESTING QUIETLY AT THIS TIME WATCHING TV. DENIES NEEDS. BED LOW. PHONE AND CALL LIGHT IN REACH. SRX2.
--- NOTE | 2016-09-09 05:35 | NUR ---
PROTONIX PO GIVEN AT THIS TIME. PT DENIES NEEDS. BED LOW. PHONE AND CALL LIGHT IN REACH. SRX2.
[2016-09-09 05:47] LABS: BASOPHILS 0.5 % (0-2); EOSINOPHILS 2.9 % (0-7); HEMATOCRIT 31.7 % (36.0-48.0); HEMOGLOBIN 10.5 g/dL (12-16); IMMATURE GRANULOCYTES 0.5 % (0-5); LYMPHOCYTES 20.8 % (15-50); MCH 30.3 pg (26.0-34.0); MCHC 33.1 g/dL (31.0-37.0); MCV 91.6 fL (80.0-100.0); MEAN PLATELET VOLUME 11.1 fL (7.4-10.4); MONOCYTES 8.2 % (2-11); NEUTROPHILS 67.1 % (40-80); PLATELET COUNT 279 10x3/uL (130-400); RBC 3.46 10x6/uL (4.00-5.40); RDW 14.7 % (11.5-14.5); WBC 7.8 10x3/uL (4.8-10.8)
[2016-09-09 06:31] LABS: ALBUMIN 1.8 g/dL (3.4-5.0); ANION GAP 6.3 mmol/L (8-16); BILIRUBIN - TOTAL 1.6 mg/dL (0.2-1.3); CALCIUM 8.3 mg/dL (8.5-10.1); CARBON DIOXIDE 39.3 mmol/L (21.0-32.0); CREATININE - SERUM 1.6 mg/dL (0.6-1.3); POTASSIUM - SERUM 3.6 mmol/L (3.5-5.1); PROTEIN - SERUM 5.5 g/dL (6.4-8.2)
[2016-09-09 08:17] VITALS: BP 124/59
--- NOTE | 2016-09-09 08:42 | NUR ---
09/09/2016 8:33 DCP: Discharge Planning Late Entry 09/08 Rec'd voice message from Shirley with [employer] Ext. [phone]. She stated she has approved patient to go to [facility] - Auth # for SNF if [id number]. Call placed to Sydni at [facility], notifying them of above. Rec'd call from Tiera with [facility] - patient has been approved clinically for their facility as well.
[2016-09-09 10:37] LABS: CHOL - HDL RATIO 10.6 ratio (2.3-4.1); LDL-HDL RATIO 8.8 ratio (1.5-3.5)
--- NOTE | 2016-09-09 11:48 | NUR ---
Patient Name: ALFREDO SHELTON Encounter No: [id number] : 1955 Primary Insurance: MESSI Anticipated DC Date: 09-09-2016 Planned Disposition: [facility] External Planned Provider: [facility] RE[facility] BED DCP follow-up note: CM SPOKE TO PT IN ROOM WHO IS IN AGREEMENT WITH DISCHARGE TODAY TO [facility]. 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 PT REPORTS SHE LOST THE APPLICATION FOR HOUSING. CM PROVIDED PT WITH ANOTHER APPLICATION FOR HOUSING ASSISTANCE. CM CALLED SABINA ROBINS, , OF [facility] [employer] [employer], NOTIFIED OF PT'S DISCHARGE TODAY TO [facility], CM TO FAX DISCHARGE INFORMATION TO [facility] AT [phone]. CM CALLED Shirley [employer] [employer] Ext. [phone], NOTIFIED OF PT'S DISCHARGE TO REHAB TODAY AT [facility]. CM RECEIVED CALL FROM SAM OF [facility], THEY HAVE NEGOTIATED RATE FOR PT'S REHAB AND WILL ACCCEPT PT TODAY. [facility] TO TRANSPORT. FOR DISCHARGE, CM TO FAX DISCHARGE INFORMATION TO [facility] AT [phone], CM TO FAX DISCHARGE INFORMATION TO [facility] AT [phone]. 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 Dariusz Dubose, CASE MANAGEMENT
[2016-09-09 12:00] VITALS: BP 124/64
[2016-09-09] MEDS ORDERED: XIFAXAN550 MG PO (12:10)
[2016-09-09] MEDS ORDERED: COREG12.5 MG PO (12:10)
[2016-09-09] MEDS ORDERED: ALDACTONE100 MG PO (12:10)
[2016-09-09] MEDS ORDERED: CHRONULAC30 ML PO (12:10)
--- NOTE | 2016-09-09 14:25 | NUR ---
AVILA DC'D WITH TIP INTACT. REMOVED 10CC CLEAR FLUID FROM BALLOON PRIOR TO REMOVAL. DC'D IV WITH TIP INTACT. COVERED WITH 2X2 GAUZE AND TAPE. TOLERATED WELL. DISCHARGE INSTRUCTIONS REVIEWED WITH PT. VERBAL AND WRITTEN ACKNOWLEDGEMENT RETURNED. AWAITING PICKUP BY [facility]
--- NOTE | 2016-09-09 15:23 | NUR ---
REPORT CALLED TO EUGENIA AT [facility]. PT DC'D TO [facility]IA [facility]
== END 2016-09-09 15:23 | DRG 432 ==
LOC: D.ER 21:03 → D.M2 23:46 → D.SDCHOLD 08-30 15:58 → D.M2 09-09 15:23
PROVIDERS: Family Medicine; Internal Medicine Gastroenterology; Radiology Diagnostic Radiology; ADMIT Family Medicine
PROC: 0T9B70Z Drainage of Bladder with Drainage Device, Via Natural or Artificial Opening (ICD-10-PCS; principal; 2016-08-29)
PROC: 0W9G3ZZ Drainage of Peritoneal Cavity, Percutaneous Approach (ICD-10-PCS; 2016-09-02)
PROC: 0FB13ZX Excision of Right Lobe Liver, Percutaneous Approach, Diagnostic (ICD-10-PCS; 2016-09-02 14:53)
DX: K74.3 Primary biliary cirrhosis (principal); G93.40 Encephalopathy, unspecified; R18.8 Other ascites; E46 Unspecified protein-calorie malnutrition; I42.6 Alcoholic cardiomyopathy; R74.8 Abnormal levels of other serum enzymes; I50.9 Heart failure, unspecified; E87.6 Hypokalemia; I08.1 Rheumatic disorders of both mitral and tricuspid valves; I27.2 Other secondary pulmonary hypertension; Z87.891 Personal history of nicotine dependence; D64.9 Anemia, unspecified; E83.51 Hypocalcemia; E88.09 Other disorders of plasma-protein metabolism, not elsewhere classified

== ENCOUNTER 2018-05-17 11:37 | Inpatient (IN) | payer MEDICAID ==
[2018-05-17] VITALS (8 sets, daily range): BP systolic 104–137; BP diastolic 51–69; BMI 21.4
[~2018-05-17] VITALS: Ht 170.2 cm; Wt 62.0 kg
[~2018-05-17 11:37] MED LIST: ALDACTONE100 MG PO; CHRONULAC30 ML PO; COREG12.5 MG PO; XIFAXAN550 MG PO
[2018-05-17] MEDS ORDERED: BUMEX2 MG PO (11:40)
[2018-05-17] MEDS ORDERED: POTASSIUM CHLO10 ME1 PO (11:41)
[2018-05-17] MEDS ORDERED: GLUCOPHAGE500 MG (11:41)
[2018-05-17] MEDS ORDERED: CELEXA10 MG PO (11:41)
[2018-05-17 12:26] LABS: BASOPHILS 0.5 % (0-2); EOSINOPHILS 0.4 % (0-7); HEMATOCRIT 25.1 % (36.0-48.0); HEMOGLOBIN 8.6 g/dL (12-16); IMMATURE GRANULOCYTES 1.5 % (0-5); LYMPHOCYTES 8.3 % (15-50); MCH 30.3 pg (26.0-34.0); MCHC 34.3 g/dL (31.0-37.0); MCV 88.4 fL (80.0-100.0); MEAN PLATELET VOLUME 10.9 fL (7.4-10.4); MONOCYTES 2.9 % (2-11); NEUTROPHILS 86.4 % (40-80); RBC 2.84 10x6/uL (4.00-5.40); RDW 15.5 % (11.5-14.5); WBC 13.2 10x3/uL (4.8-10.8)
[2018-05-17 12:37] LABS: APTT 28.8 SECONDS (22.8-39.4); INR 1.07 (0.85-1.17); PROTIME 13.4 SECONDS (11.6-15.0)
[2018-05-17 12:41] LABS: ALBUMIN 2.4 g/dL (3.4-5.0); ANION GAP 16.6 mmol/L (8-16); BILIRUBIN - TOTAL 2.12 mg/dL (0.2-1.3); CALCIUM 8.4 mg/dL (8.5-10.1); CARBON DIOXIDE 22.1 mmol/L (21.0-32.0); CREATININE - SERUM 1.7 mg/dL (0.6-1.3); POTASSIUM - SERUM 5.7 mmol/L (3.5-5.1); PROTEIN - SERUM 5.9 g/dL (6.4-8.2)
[2018-05-17 12:56] LABS: PLATELET COUNT 186 10x3/uL (130-400)
--- NOTE | 2018-05-17 16:05 | NUR ---
EGD IN PROGRESS-----
--- NOTE | 2018-05-17 17:00 | NUR ---
VISITING WITH SISTER DR EDWARDS AT BS UPDATE STATUS GIVEN
--- NOTE | 2018-05-17 19:45 | NUR ---
REPORT RECEIVED. PT WITH EYES OPEN WATCHING TV. DENIES PAIN. SECOND UNIT OF PRBC COMPLETED AND DISCONNECTED BY OUTGOING NURSE AND LINE FLUSHED. NO OTHER NEEDS OR CONCERNS MADE KNOWN. CALL LIGHT IN REACH. WILL CONTINUE TO OBSERVE.
--- NOTE | 2018-05-17 21:25 | NUR ---
PT WITH EYES OPEN WATCHING TV. DENIES PAIN. RECEIVED 2100 MEDICATIONS TOLERATED WELL. FSBS 250 WITH 4 UNITS HUMULIN R GIVEN. WILL CONTINUE TO OBSERVE. CALL LIGHT IN REACH.
--- NOTE | 2018-05-17 23:57 | NUR ---
REASSESSMENT COMPLETED, SEE FLOW SHEET. NO NEEDS OR CONCERNS NOTED. CALL LIGHT IN REACH. WILL CONTINUE TO OBSERVE.
[2018-05-18] VITALS (14 sets, daily range): BP systolic 101–120; BP diastolic 45–75; Ht 170.2 cm; Wt 62.0 kg
--- NOTE | 2018-05-18 01:51 | NUR ---
PT RESTING WITH EYES CLOSED AND CHEST RISING. PT WAKES FREQUENTLY. NO NEEDS MADE KNOWN. CALL LIGHT IN REACH. WILL CONTINUE TO OBSERVE.
--- NOTE | 2018-05-18 03:40 | NUR ---
REASSESSMENT COMPLETED, SEE FLOW SHEET. NO NEEDS MADE KNOWN. CALL LIGHT IN REACH. WILL CONTINUE TO OBSERVE
[2018-05-18 05:08] LABS: ALBUMIN 2.3 g/dL (3.4-5.0); ANION GAP 13.3 mmol/L (8-16); BILIRUBIN - TOTAL 2.04 mg/dL (0.2-1.3); CALCIUM 8.1 mg/dL (8.5-10.1); CARBON DIOXIDE 22.9 mmol/L (21.0-32.0); CREATININE - SERUM 1.5 mg/dL (0.6-1.3); PROTEIN - SERUM 5.2 g/dL (6.4-8.2)
[2018-05-18 05:09] LABS: POTASSIUM - SERUM 4.2 mmol/L (3.5-5.1)
[2018-05-18 05:33] LABS: BASOPHILS 0.3 % (0-2); EOSINOPHILS 0.7 % (0-7); HEMATOCRIT 25.3 % (36.0-48.0); HEMOGLOBIN 8.8 g/dL (12-16); IMMATURE GRANULOCYTES 0.8 % (0-5); LYMPHOCYTES 21.2 % (15-50); MCH 29.8 pg (26.0-34.0); MCHC 34.8 g/dL (31.0-37.0); MEAN PLATELET VOLUME 10.9 fL (7.4-10.4); MONOCYTES 5.7 % (2-11); NEUTROPHILS 71.3 % (40-80); RBC 2.95 10x6/uL (4.00-5.40); WBC 10.7 10x3/uL (4.8-10.8)
[2018-05-18 05:34] LABS: MCV 85.8 fL (80.0-100.0); PLATELET COUNT 110 10x3/uL (130-400)
--- NOTE | 2018-05-18 06:50 | NUR ---
PT USES BEDPAN WITH DARK YELLOW URINE SOME SPILT OVER ONTO PADS. PT CLEANED SELF. AND NEW PADS PROVIDED.
--- NOTE | 2018-05-18 07:00 | NUR ---
PT RESTING IN BED WITH STABLE VS. AWAKE ALERT AND ORIENTED. NO COMPLAINTS. WILL CONTINUE TO MONITOR
[2018-05-18 08:32] LABS: APPEARANCE CLEAR (CLEAR); BILIRUBIN NEGATIVE (NEGATIVE); COLOR YELLOW (YELLOW); GLUCOSE NEGATIVE (NEGATIVE); KETONE NEGATIVE (NEGATIVE); NITRITE NEGATIVE (NEGATIVE); PROTEIN NEGATIVE (NEGATIVE); UROBILINOGEN NORMAL (NORMAL)
--- NOTE | 2018-05-18 09:00 | NUR ---
PATIENT AWAKE ALERT AND ORIENTED. VSS. NS INFUSINGA T 125ML/HR. ATE 0 BREAKFAST BUT DRANK ALL MILK AND JUICE. WILL CONTINUE TO MONITOR
--- NOTE | 2018-05-18 11:14 | NUR ---
PATIENT RESTING IN BED C STABLE VSS. NORMAL RESPIRATIONS. NO COMPLAINTS. WILL CONTINUE TO MONITOR
[2018-05-18] MEDS ORDERED: PROTONIX40 MG PO (12:08)
[2018-05-18] MEDS ORDERED: CARAFATE1 G PO (12:08)
--- NOTE | 2018-05-18 12:35 | MORECARE ---
CASE MANAGEMENT DISCHARGE SUMMARY PATIENT: ALFREDO SHELTON UNIT: [id number] ADM DATE: 05/17/18 AGE: 62 : 57 SEX: F ROOM/BED: D.2304 AUTHOR: ZACK BRICENO PHYSICIAN: REFERRING PHYSICIAN: LEXI NATION MD DATE OF SERVICE: 05/18/18 Discharge Plan Patient Name: ALFREDO SHELTON Facility: [facility]:[place] : 1955 Planned Disposition: Home Anticipated Discharge Date: Discharge Date: Expected LOS: Initial Reviewer: [email or web address] Initial Review Date: 05/18/2018 Generated: 05/18/18 1:34 pm Patient Name: ALFREDO SHELTON Page [id number] at 1235 All edits/amendments must be made on the electronic document DICTATION DATE: 05/18/18 1234 CIRCUIT RECORDER: АННА 05/18/18 1234 RPT#: [id number] DC DATE: STATUS: ADM IN [facility] [address] [place] [address] END OF REPORT
--- NOTE | 2018-05-18 12:42 | MORECARE ---
CASE MANAGEMENT DISCHARGE SUMMARY PATIENT: ALFREDO SHELTON UNIT: [id number] ADM DATE: 05/17/18 AGE: 62 : 57 SEX: F ROOM/BED: D.2304 AUTHOR: KAITY,DOC PHYSICIAN: REFERRING PHYSICIAN: LEXI NATION MD DATE OF SERVICE: 05/18/18 Discharge Plan Patient Name: ALFREDO SHELTON Facility: [facility]:[place] : 1955 Planned Disposition: Home Anticipated Discharge Date: Discharge Date: Expected LOS: Initial Reviewer: [email or web address] Initial Review Date: 05/18/2018 Generated: 05/18/18 1:42 pm Comments DCP- Discharge Planning Updated by [email or web address]: Rhoda Mendosa on 05/18/18 11:[address] Patient Name: ALFREDO SHELTON Admission Status: ER Accout number: [id number] Admission Date: 05-17-2018 : 1955 Admission Diagnosis: Attending: LEXI NATION Current LOS: 1 Anticipated DC Date: Planned Disposition: Home Primary Insurance: MEDICAID [place] Discharge Planning Comments: CM met with patient at bedside. patient states she lives with her sister Ana and plans on returning to her home. Patient denies any discharge needs. CM will continue to follow and assist as needed with discharge planning / needs. Bead Worker Sewing: Rhoda Mendosa DCPIA - Discharge Planning Initial Assessment Updated by [email or web address]: Rhoda Mendosa on 05/18/18 12:35 pm * Is the patient Alert and Oriented? Yes * How many steps to enter\exit or inside your home? * PCP ROSALIND * [facility] * Preadmission Environment Home with Family * ADLs Independent * Equipment None * Other Equipment STATES SHE HAS MEDICAL EQUIPMENT AVAILABLE IF NEEDED * List name and contact numbers for known caregivers / representatives who currently or will assist patient after discharge: ANA LOPEZ- SISTER- [phone] * Verbal permission to speak to the caregivers and representatives has been obtained from the patient. N/A * Community resources currently utilized None * Additional services required to return to the preadmission environment? No * Can the patient safely return to the preadmission environment? Yes * Has this patient been hospitalized within the prior 30 days at any hospital? No Last DP export: 05/18/18 11:34 a Patient Name: ALFREDO SHELTON Page [id number] at 1242 All edits/amendments must be made on the electronic document DICTATION DATE: 05/18/181240 KILN MAINTENANCE: АННА 05/18/18 1241 RPT#: [id number] DC DATE: STATUS: ADM IN [facility] [address] [place] [address] END OF REPORT
--- NOTE | 2018-05-18 12:55 | NUR ---
DISCHARGE INSTRUCTIONS GIVEN WITH PAPERWORK.
--- NOTE | 2018-05-18 13:03 | NUR ---
DC'D IV'S TO RIGHT AND LEFT FOREARM.
--- NOTE | 2018-05-18 14:30 | NUR ---
PATIENT TAKEN TO FRIENDS VEHICLE FOR DISCHARGE WITH ALL BELONGINGS AND DISCHARGE INSTRUCTIONS.
--- NOTE | 2018-05-18 17:20 | MORECARE ---
CASE MANAGEMENT DISCHARGE SUMMARY PATIENT: ALFREDO SHELTON UNIT: [id number] ADM DATE: 05/17/18 AGE: 62 : 57 SEX: F ROOM/BED: D.2304 AUTHOR: KAITY,DOC PHYSICIAN: REFERRING PHYSICIAN: LEXI NATION MD DATE OF SERVICE: 05/18/18 Discharge Plan Patient Name: ALFREDO SHELTON Facility: [facility]:[place] : 1955 Planned Disposition: Home Anticipated Discharge Date: Discharge Date: 05/18/2018 Expected LOS: Initial Reviewer: [email or web address] Initial Review Date: 05/18/2018 Generated: 05/18/18 6:20 pm Comments DCP- Discharge Planning Updated by [email or web address]: Rhoda Mendosa on 05/18/18 11:[address] Patient Name: ALFREDO SHELTON Admission Status: ER Accout number: [id number] Admission Date: 05-17-2018 : 1955 Admission Diagnosis: Attending: LEXI NATION Current LOS: 1 Anticipated DC Date: Planned Disposition: Home Primary Insurance: MEDICAID [place] Discharge Planning Comments: CM met with patient at bedside. patient states she lives with her sister Ana and plans on returning to her home. Patient denies any discharge needs. CM will continue to follow and assist as needed with discharge planning / needs. Machine Ii Cutter: Rhoda Mendosa DCPIA - Discharge Planning Initial Assessment Updated by [email or web address]: Rhoda Mendosa on 05/18/18 12:35 pm * Is the patient Alert and Oriented? Yes * How many steps to enter\exit or inside your home? * PCP ROSALIND * [facility] * Preadmission Environment Home with Family * ADLs Independent * Equipment None * Other Equipment STATES SHE HAS MEDICAL EQUIPMENT AVAILABLE IF NEEDED * List name and contact numbers for known caregivers / representatives who currently or will assist patient after discharge: ANA LOPEZ- SISTER- [phone] * Verbal permission to speak to the caregivers and representatives has been obtained from the patient. N/A * Community resources currently utilized None * Additional services required to return to the preadmission environment? No * Can the patient safely return to the preadmission environment? Yes * Has this patient been hospitalized within the prior 30 days at any hospital? No Last DP export: 05/18/18 11:42 a Patient Name: ALFREDO SHELTON Page [id number] at 1720 All edits/amendments must be made on the electronic document DICTATION DATE: 05/18/181719 ADVERTISING ACCOUNT MANAGER: АННА 05/18/181719 RPT#: [id number] DC DATE:05/18/18 STATUS: DIS IN [facility] [address] [place] [address] END OF REPORT
== END 2018-05-18 14:33 | disposition home or self-care (01) | DRG 377 ==
LOC: D.ER 11:37 → D.ICU 13:43 → D.EDHOLD 13:43 → D.ICU 14:46
PROVIDERS: Family Medicine; Internal Medicine Gastroenterology; ADMIT Internal Medicine Nephrology
PROC: 0DB78ZX Excision of Stomach, Pylorus, Via Natural or Artificial Opening Endoscopic, Diagnostic (ICD-10-PCS; principal; 2018-05-17 15:46)
DX: K25.4 Chronic or unspecified gastric ulcer with hemorrhage (principal); R57.1 Hypovolemic shock; D62 Acute posthemorrhagic anemia; E87.1 Hypo-osmolality and hyponatremia; N17.9 Acute kidney failure, unspecified; I85.10 Secondary esophageal varices without bleeding; R55 Syncope and collapse; E87.5 Hyperkalemia; R74.0 Nonspecific elevation of levels of transaminase and lactic acid dehydrogenase [LDH]; K70.30 Alcoholic cirrhosis of liver without ascites; K21.0 Gastro-esophageal reflux disease with esophagitis; E11.65 Type 2 diabetes mellitus with hyperglycemia

== ENCOUNTER 2018-05-20 19:03 | Inpatient (IN) | payer MEDICAID ==
[~2018-05-20] VITALS: Ht 170.2 cm; Wt 81.5 kg
[2018-05-20] VITALS (10 sets, daily range): BP systolic 77–140; BP diastolic 27–76; BMI 23.8
[~2018-05-20 19:03] MED LIST changes: +BUMEX2 MG PO; +CARAFATE1 G PO; +CELEXA10 MG PO; +GLUCOPHAGE500 MG; +POTASSIUM CHLO10 ME1 PO; +PROTONIX40 MG PO
--- NOTE | 2018-05-20 19:03 | NUR ---
EMERGENT BLOOD CONSENT SIGNED WITH ME AND ONE OTHER NURSE.
--- NOTE | 2018-05-20 19:06 | NUR ---
PT ARRIVED VIA EMS-VERY PALE. 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 STATES WAS HERE EARLIER THIS WEEK FOR SAME ISSUE. EMS WAS ALSO CONCERNED OVER EKG. DR WHITTEN AWARE AND AT BEDSIDE. TWO IV'S NOTED- 20G X 1 TO RIGHT HAND AND 20G IV TO LEFT F/A. HAS RECEIVED ZOFRAN 8MG AND TXA. AND 1000ML OF NS.
--- NOTE | 2018-05-20 19:22 | NUR ---
1909- FIRST UNIT OF O- PRBC'S BEGAN.
--- NOTE | 2018-05-20 19:26 | NUR ---
2ND UNIT OF O NEG BEGAN.
--- NOTE | 2018-05-20 19:40 | NUR ---
PT INCONTINENT OF SMALL TARRY SEMI FORMED STOOL. PT CLEANSED.
[2018-05-20 19:43] LABS: MCH 30.7 pg (26.0-34.0); MCHC 33.1 g/dL (31.0-37.0); MCV 92.6 fL (80.0-100.0); MEAN PLATELET VOLUME 11.4 fL (7.4-10.4); RDW 15.8 % (11.5-14.5); WBC 18.2 10x3/uL (4.8-10.8)
--- NOTE | 2018-05-20 19:46 | NUR ---
STOOL FOR OCCULT BLOOD POSITIVE.
[2018-05-20 19:49] LABS: HEMATOCRIT 15.1 % (36.0-48.0); PLATELET COUNT 144 10x3/uL (130-400); RBC 1.63 10x6/uL (4.00-5.40)
--- NOTE | 2018-05-20 19:55 | NUR ---
LEVOPHED BEGAN AT 2MCG/MIN. (4 CC'S HOUR).
--- NOTE | 2018-05-20 19:59 | NUR ---
BOTH UNITS OF O NEGATIVE INFUSED. PT PINKING UP.
--- NOTE | 2018-05-20 20:12 | NUR ---
DR ACUNA AT BEDSIDE.
--- NOTE | 2018-05-20 20:20 | NUR ---
LEVOPHED INCREASED TO 3MCG/MINUTE.
--- NOTE | 2018-05-20 20:20 | NUR ---
FFP, SODIUM BICARB DRIP AT 150ML/HOUR, AND LEVOPHED DRIP ALL CON'T ON ADMISSION TO OR.
[2018-05-20 20:26] LABS: BASOPHILS 2 % (0-2); EOSINOPHILS 1 % (0-7); LYMPHOCYTES 14 % (15-50); NEUTROPHILS 81 % (40-80); PLATELET ESTIMATE NORMAL; POIKILOCYTOSIS OCC; POLYCHROMASIA OCC
[2018-05-20 20:27] LABS: BURR CELLS OCC
[2018-05-20 20:34] LABS: APTT 32.9 SECONDS (22.8-39.4); INR 1.4 (0.85-1.17); PROTIME 16.5 SECONDS (11.6-15.0)
--- NOTE | 2018-05-20 20:34 | NUR ---
LARGE MELANOUS TARRY STOOL THE SIZE OF A BASKETBALL CLEANSED FROM PATIENT. DR ARMAND GODWIN.
[2018-05-20 20:35] LABS: KETONE - SERUM NEGATIVE (NEGATIVE)
--- NOTE | 2018-05-20 20:35 | NUR ---
LEVOPHED INCREASED TO 4MCG.
--- NOTE | 2018-05-20 20:44 | NUR ---
TWO UNITS OF FFP BEGAN. OR HERE TO TAKE FOR EGD WITH ALL INDICATED INTERVENTIONS WITH ANESTHESIA. PT TO GO TO ROOM 2314 AFTERWARDS.
--- NOTE | 2018-05-20 20:45 | NUR ---
PT TO OR- BELONGINGS IN BAG WITH PATIENT.
[2018-05-20 20:58] LABS: ALBUMIN 1.5 g/dL (3.4-5.0); ALKALINE PHOSPHATASE 267 U/L (46-116); ALT (SGPT) 116 U/L (10-68); BILIRUBIN - TOTAL 1.21 mg/dL (0.2-1.3); CALCIUM 7.2 mg/dL (8.5-10.1); CARBON DIOXIDE 10.4 mmol/L (21.0-32.0); CHLORIDE - SERUM 104 mmol/L (98-107); CREATINE KINASE 32 UL (21-215); CREATININE - SERUM 1.5 mg/dL (0.6-1.3); PROTEIN - SERUM 3.8 g/dL (6.4-8.2); SODIUM 134 mmol/L (136-145); UREA NITROGEN 71 mg/dL (7-18); eGFR NON AFRICAN AMERICAN 37 mL/min (90-120)
[2018-05-20 21:02] LABS: CALC OSMOLALITY 309 mosm/kg (275-300)
[2018-05-20 21:08] LABS: GLUCOSE 477 mg/dL (74-106)
[2018-05-20 21:09] LABS: TROPONIN-I 0.164 ng/mL (0.000-0.060)
--- NOTE | 2018-05-20 21:57 | NUR ---
2111 GOLD PROBE UTILIZED MULTIPLE TIMES WITH PROCEDURE 2123 EPINEPHERINE 1CC INJECTION WITH GOLD PROBE.
[2018-05-20 22:55] LABS: HEMATOCRIT 39.2 % (36.0-48.0); HEMOGLOBIN 13.1 g/dL (12-16); MCH 29.6 pg (26.0-34.0); MCHC 33.4 g/dL (31.0-37.0); MCV 88.7 fL (80.0-100.0); MEAN PLATELET VOLUME 11.2 fL (7.4-10.4); PLATELET COUNT 114 10x3/uL (130-400); RBC 4.42 10x6/uL (4.00-5.40); RDW 14.9 % (11.5-14.5); WBC 24.5 10x3/uL (4.8-10.8)
[2018-05-20 23:13] LABS: ACANTHOCYTES 1+; LYMPHOCYTES 11 % (15-50); MONOCYTES 3 % (2-11); NEUTROPHILS 77 % (40-80); PLATELET ESTIMATE DECREASED
--- NOTE | 2018-05-20 23:20 | NUR ---
REC'D PT FROM RECOVERY ROOM POST EGD TO ROOM 2312, PT AWAKE AND ALERT ON 02 @ 2 LITERS, PT DRY HEAVING COMPLAINING OF NAUSEA, STATES " WHY AM I SO SICK?", PT MOVED SELF TO BED, INCONTINENT OF BLACK TARRY STOOL, PARTIAL BATH AND LINEN CHANGE PROVIDED, ALL MONITORS ESTABLISHED, CM-SR @ 88, BP 127/74, PULSE 96%, SR UP X 2, RIGHT HAND PIV SALINE LOCKED, RIGHT A/C PIV WITH 1/2NS WITH 1 AMP SODIUM BICARB @ 150CC/HR, LEFT FOREARM PIV WITH LEVOPHED @ 2MCG/MIN, AVILA PATNENT DRAINING CLEAR YELLOW URINE, BED IN LOW POSITION, SR UP X 2 , CALL LIGHT IN REACH.
--- NOTE | 2018-05-20 23:38 | NUR ---
AT 2151 DR CALIX AT BEDSIDE. VERBAL ORDERS RECEIVED TO HAVE A HEMATOCRIT AND HEMOGLOBIN AND EKG STAT IN PACU. ORDERS RECEIVED AND IMPLEMENTED. JOSEP SENIOR CRNA CALLED THE LAB. WILL CONTINUE TO MONITOR.
--- NOTE | 2018-05-20 23:48 | NUR ---
12.5MG OF PHENERGAN GIVEN IM TO RIGHT DORSOGLUTEAL, PT TOLERATED WELL, COOL CLOTH PROVIDED AND GOWN CHANGED, SMALL AMOUNT OF BLOOD TINGED EMESIS NOTED, WILL MONITOR CLOSELY FOR CHANGES.
--- NOTE | 2018-05-20 23:58 | NUR ---
ANESTHESIA REVIEWED EKG AND NO CHANGES FROM PREOP EKG WHICH WAS DONE IN THE ER. NO NEW ORDERS RECEIVED. WILL CONTINUE TO MONITOR.
[2018-05-21] VITALS (63 sets, daily range): BP systolic 77–146; BP diastolic 40–81
--- NOTE | 2018-05-21 00:30 | NUR ---
DR. ARMAND FELTON.
--- NOTE | 2018-05-21 00:45 | NUR ---
DR. ACUNA INFORMED OF PT'S CONTINUED, NAUSEA AND VOMITING, NEW ORDERS REC'D.
--- NOTE | 2018-05-21 00:50 | NUR ---
REMAINDER OF PHENERGAN GIVEN PER DR. ACUNA, PT REPOSITIONED UP IN BED, VSS, WILL CONT TO MONITOR FOR CHANGES.
--- NOTE | 2018-05-21 01:00 | NUR ---
PT YELLING AT STAFF AT TIMES ABOUT BEING "SO SICK", EXPLAINED TO PT WE ADJUSTING TO MEDICATION TO MAKE HER MORE COMFORTABLE, REASSURANCE PROVIDED.
--- NOTE | 2018-05-21 03:30 | NUR ---
PT INCONTIENT OF LARGE BLACK TARRY STOOL, COMPLETE BATH AND LINEN CHANGE PROVIDED, PT REPOSITIONED UP IN BED FOR COMFORT, ICE CHIPS PROVIDED FOR COMPLAINTS OF DRY MOUTH, PT DENIES FURTHER NEEDS.
--- NOTE | 2018-05-21 05:30 | NUR ---
UPON ENTERING ROOM IT APPEARS PT VOMITTED, SMALL AMOUNT BURGUNDY COLORED EMESIS, BLOOD CLOT NOTED NOTED ON WASHCLOTH, PT INCONTINENT OF MEDIUM SIZED BLACK TARRY STOOL, BATH AND LINEN CHANGE PROVIDED, PT COMPLAINS OF NAUSEA, 25MG PHENERGAN GIVEN IM TO LEFT DORSOGLUTEAL AREA, PT TOLERATED WELL, PT DENIES FURTHER NEEDS AT THIS TIME, SR UP X 2, CALL LIGHT IN REACH.
--- NOTE | 2018-05-21 07:00 | NUR ---
AWAKES EASILY TO VERBAL STIMULI SKIN WARM AND DRY. COLOR PINK. MONITOR ST WITH OCC PVC AND PAC'S. PLACED ON BED FLOREZ. STATES SHE IS NAUSEA. IV RIGHT AC INFUSING WITH NS AT KVO. RIGHT WRIST SALINE LOCK. LEFT FOREARM INFUSING WITH 1/2NS WITH 3 AMPS SODIUM BICARB AT 150 ML HOUR. AVILA CATH PATENT AND DRAINING CLEAR JAKE URINE. FEELS SICK. HEAD OF BED ELEVATED 30 DEGREES ABLE TO USE CALL LIGHT.
--- NOTE | 2018-05-21 07:30 | NUR ---
VOMITTED LARGE AMOUNT BRIGHT RED BLOOD WITH CLOTS. CONTINOUS DIARRHEA OF DARK RED BLOOD FROM RECTUM. COMPLIANTS OF FEELING NAUSEA ZOFRAN GIVEN.
[2018-05-21 07:34] LABS: BASOPHILS 0.1 % (0-2); EOSINOPHILS 0 % (0-7); HEMATOCRIT 35.3 % (36.0-48.0); HEMOGLOBIN 12.2 g/dL (12-16); IMMATURE GRANULOCYTES 0.6 % (0-5); LYMPHOCYTES 5.1 % (15-50); MCH 29.7 pg (26.0-34.0); MCHC 34.6 g/dL (31.0-37.0); MEAN PLATELET VOLUME 11.1 fL (7.4-10.4); MONOCYTES 4.1 % (2-11); NEUTROPHILS 90.1 % (40-80); RBC 4.11 10x6/uL (4.00-5.40); RDW 15.5 % (11.5-14.5)
[2018-05-21 07:35] LABS: MCV 85.9 fL (80.0-100.0); PLATELET COUNT 72 10x3/uL (130-400)
[2018-05-21 07:51] LABS: ANION GAP 18.3 mmol/L (8-16); BILIRUBIN - TOTAL 2.82 mg/dL (0.2-1.3); CALCIUM 7.1 mg/dL (8.5-10.1); CARBON DIOXIDE 19.4 mmol/L (21.0-32.0); CREATININE - SERUM 1.5 mg/dL (0.6-1.3); POTASSIUM - SERUM 4.7 mmol/L (3.5-5.1); PROTEIN - SERUM 4.6 g/dL (6.4-8.2)
--- NOTE | 2018-05-21 08:30 | NUR ---
VOMITTED 700CC BRIGHT RED BLOOD. CONTINOUS DARK RED DIARRHEA STOOL. DR. ARMAND FELTON.
--- NOTE | 2018-05-21 08:59 | NUR ---
DR. ACUNA NOTIFIED OF VOMITTING BRIGHT RED BLOOD. PROTONIX GTT ORDERED.
--- NOTE | 2018-05-21 10:00 | NUR ---
PATIENT STILL VOMITTING SOME BLOOD SMALL AMOUNTS. CONSENTS FOR EGD SIGNED. DR. ACUNA HERE TALKED WITH PATIENT. STILL HAVE OZZING OF DARK RED BLOOD RECTALLY.
[2018-05-21 11:15] LABS: HEMATOCRIT 31.9 % (36.0-48.0); HEMOGLOBIN 10.5 g/dL (12-16)
--- NOTE | 2018-05-21 11:18 | NUR ---
MARKELL LOPEZ PATIENT SISTER [phone] NOTIFIED OF PATIENT RETURNING TO OR FOR EGD TO LOOK FOR BLEEDING. VERBALIZED THAT SHE WOULD BE IN THE WAITING ROOM, SHE IS ON HER WAY UP HERE
--- NOTE | 2018-05-21 11:19 | NUR ---
[facility] AND GI LAB HERE
--- NOTE | 2018-05-21 11:40 | NUR ---
TO OR FOR EGD WITH GI LAB AND ANESTHESIA. PER BED
--- NOTE | 2018-05-21 12:07 | NUR ---
1207 VARICIE IDENTIFIED SMALL YET POSSIBLE THE BLEEDER, SCOPE CHANGED FROM BLEEDER TO REGULAR SCOPE TO SUPERVISOR DRILLING AND SHOOTING
--- NOTE | 2018-05-21 13:00 | NUR ---
RETURNED TO ROOM AWAKES EASILY TO VERBAL STIMULI SKIN WARM AND DRY. HANDS ARE COLD. LEVOPHED GTT INFUSING AT [address] ACUNA HERE TALKED WITH PATEINT SISTER MARKELL AND PATIENT. IV RIGHT HAND INFUSING WITH PROTONIX GTT AT 8 MG HOUR. LEVOPHED INFUSING RIGHT AC. LEFT FOREARM INFUSING WITH 1/2NS WITH 3 AMPS OF BICARB AT 150 ML HOUR. AVILA CATH PATENT. ACCUCHECK DONE 328 PLACED ON LOW RESISTANT INSULIN SS PER DR. NATION. MONITOR ST WITH OCC PVC. STILL NAUSEA PHERGAN GIVEN.
--- NOTE | 2018-05-21 14:34 | NUR ---
CLEANED LARGE DARK RED STOOL. PATIENT GIVEN A CHLORHEXIDINE BATH TO CLEAN SORES ALL OVER HER LEGS, BUTTOCK LEGS ARMS BACK. PATIENT STATES SHE HAS LIVER FAILURE AND SHE ITCHES ALL THE TIME. CHLORHEXIDINE MORIN SORES NO INCREASE IN REDNESS NOTED. NO DRAINAGE FROM SORES NOTED. LEVOPHED GTT AT 6 MCG. COMPLETE LINEN CHANGE. REFUSED SCD ON HER LEGS. STATES HER LEGS ARE CRAMPING.
--- NOTE | 2018-05-21 15:34 | NUR ---
STATES NAUSEA IS BETTER AFTER PHENERGAN. RESTING MORE COMFORTABLE. WEANING LEVOPHED TOLERATED TO MAINTAIN SYS BP 90
--- NOTE | 2018-05-21 16:45 | NUR ---
TALKED DR. NATION ABOUT JERKING, CALCIUM GLUCONATE ORDERED.
--- NOTE | 2018-05-21 17:24 | NUR ---
DR. ACUNA NOTIFIED OF HGB 9.1. STATES HE IS OK WITH THIS TO REPEAT H&h IN 6 HOURS.
--- NOTE | 2018-05-21 18:25 | NUR ---
PATIENT NAPPING NO DISTRESS. MONITOR SR WITH FREQ PVC'S. NO DISTRESS. NO VOMITTING OR BLODDY DIARRHEA SINCE EGD.
--- NOTE | 2018-05-21 19:30 | NUR ---
REPORT RECEIVED. PT WITH EYES CLOSED AND CHEST RISING. EASILY AWOKEN BY VERBAL STIMULI. VITAL SIGNS STABLE. DENIES NEEDS AT THIS TIME. CALL LIGHT IN REACH. WILL CONTINUE TO OBSERVE
--- NOTE | 2018-05-21 21:35 | NUR ---
PT WITH EYES CLOSED AND CHEST RISING. EASILY AWOKEN WITH VERBAL STIMULI. NO S/S OF DISTRESS. CALL LIGHT IN REACH. WILL CONTINUE TO OBSERVE.
[2018-05-21 21:36] LABS: HEMOGLOBIN 8.7 g/dL (12-16)
[2018-05-21 21:37] LABS: HEMATOCRIT 25.3 % (36.0-48.0)
--- NOTE | 2018-05-21 23:50 | NUR ---
REASSESSMENT COMPLETED, SEE FLOW SHEET. NO S/S OF DISTRESS. WILL CONTINUE TO OBSERVE.
[2018-05-22] VITALS (46 sets, daily range): BP systolic 19–131; BP diastolic 36–80; Ht 170.2 cm; Wt 81.5 kg
--- NOTE | 2018-05-22 01:15 | NUR ---
PT WITH EYES CLOSED AND CHEST RISING. NO S/S OF DISTRESS. WILL CONTINUE TO OBSERVE. WILL CONTINUE TO OBSERVE.
[2018-05-22 04:15] LABS: HEMATOCRIT 24.2 % (36.0-48.0); HEMOGLOBIN 8.3 g/dL (12-16); MCHC 34.3 g/dL (31.0-37.0); MCV 87.4 fL (80.0-100.0); MEAN PLATELET VOLUME 10.4 fL (7.4-10.4); RDW 16.6 % (11.5-14.5); WBC 14.8 10x3/uL (4.8-10.8)
[2018-05-22 04:17] LABS: PLATELET COUNT 120 10x3/uL (130-400); RBC 2.77 10x6/uL (4.00-5.40)
[2018-05-22 04:21] LABS: INR 1.15 (0.85-1.17); PROTIME 14.1 SECONDS (11.6-15.0)
[2018-05-22 04:41] LABS: ALBUMIN 1.8 g/dL (3.4-5.0); BILIRUBIN - TOTAL 1.34 mg/dL (0.2-1.3); CREATININE - SERUM 1.5 mg/dL (0.6-1.3); PROTEIN - SERUM 4.3 g/dL (6.4-8.2)
[2018-05-22 04:42] LABS: ANION GAP 9.3 mmol/L (8-16); CARBON DIOXIDE 29.5 mmol/L (21.0-32.0); POTASSIUM - SERUM 3.8 mmol/L (3.5-5.1)
[2018-05-22 04:43] LABS: CALCIUM 6.8 mg/dL (8.5-10.1)
[2018-05-22 04:50] LABS: LYMPHOCYTES 13 % (15-50); MONOCYTES 6 % (2-11); NEUTROPHILS 73 % (40-80); PLATELET ESTIMATE NORMAL
--- NOTE | 2018-05-22 05:20 | NUR ---
NOTIFIED OF CALCIUM OF 6.8 AND ALBUMIN OF 1.8 WITH CORRECTION OF 8.56. NO NEW ORDERS
--- NOTE | 2018-05-22 07:00 | NUR ---
REC'D REPORT AND REESUMED CARE, SLEEPING AROUSABLE TO VERBAL STIMULI, VSS, DENIES PAIN, O2 VIA RA, RT AC PIV WITH SANDOSTATIN AT 50MCG, PROTONIX AT 8MG, AND NS AT 10 CC/HR, LT FA WITH 1/2NS WITH 3 AMPS BICARB AT 150 CC/HR, AVILA TO GRAVITY WITH CLEAR YELL DRAINAGE TO BAG. ASSESSMENT COMPLETED PER FLOWSHEET, CALL LIGHT IN REACH, NO NEEDS AT THIS TIME
--- NOTE | 2018-05-22 09:00 | NUR ---
MORNING MEDS GIVEN PER JUN FLOWSHEET
--- NOTE | 2018-05-22 11:00 | NUR ---
RESTING NO NO SIGNS OF DISTRESS, VSS, NO ACUTE CHANGE FROM PREVIOUS
--- NOTE | 2018-05-22 15:00 | NUR ---
ASSESSMENT COMPLETE PER FLOWSHEET, SLEEPING WITH NO SIGN OF DISTRESS, VSS, CALL LIGHT IN REACH, NO NEEDS AT THIS TIME
--- NOTE | 2018-05-22 17:30 | NUR ---
NO ACUTE DISTRESS, RESTING, VSS, CALL LIGHT IN REACH, NO NEEDS AT THIS TIME
--- NOTE | 2018-05-22 19:20 | NUR ---
REPORT RECEIVED. PT WITH EYES CLOSED AND CHEST RISING. N/C 2LPM. PT EASILY AWOKEN TO VERBAL STIMULI. AVILA PATENT WITH JAKE URINE. ASSESSMENT COMPLETED, SEE FLOW SHEET. NO NEEDS MADE KNOWN. WILL CONTINUE TO OBSERVE. CALL LIGHT IN REACH.
--- NOTE | 2018-05-22 21:09 | NUR ---
PT WITH EYES CLOSED AND CHEST RISING. EASILY AROUSED TO VERBAL STIMULI. VITALS SIGNS WNL. NO VISIBLE SIGNS OF BLEEDING. NO CONCERNS MADE KNOWN. CALL LIGHT IN REACH. WILL CONTINUE TO OBSERVE.
--- NOTE | 2018-05-22 23:45 | NUR ---
REASSESSMENT COMPLETED, SEE FLOW SHEET. PT EASILY AWOKEN FROM SLEEP. WILL CONTINUE TO OBSERVE.
[2018-05-23] VITALS (25 sets, daily range): BP systolic 95–133; BP diastolic 44–84
--- NOTE | 2018-05-23 01:42 | NUR ---
PT RESTING WITH EYES CLOSED AND CHEST RISING. N/C 2LPM. NO S/S OF DISTRESS. CALL LIGHT IN REACH. WILL CONTINUE TO OBSERVE.
--- NOTE | 2018-05-23 03:18 | NUR ---
PT WITH SMALL BLOODY STOOL. PERICARE PROVIDED. REASSESSMENT COMPLETED, SEE FLOW SHEET. WILL CONTINUE TO OBSERVE
[2018-05-23 04:30] LABS: BASOPHILS 0 % (0-2); EOSINOPHILS 0.5 % (0-7); HEMATOCRIT 24.1 % (36.0-48.0); HEMOGLOBIN 7.8 g/dL (12-16); IMMATURE GRANULOCYTES 0.6 % (0-5); LYMPHOCYTES 10.3 % (15-50); MCHC 32.4 g/dL (31.0-37.0); MEAN PLATELET VOLUME 10.5 fL (7.4-10.4); MONOCYTES 4.9 % (2-11); NEUTROPHILS 83.7 % (40-80); PLATELET COUNT 97 10x3/uL (130-400); RDW 17.8 % (11.5-14.5)
[2018-05-23 04:43] LABS: MCV 92.7 fL (80.0-100.0); WBC 8.7 10x3/uL (4.8-10.8)
[2018-05-23 04:52] LABS: ALBUMIN 1.8 g/dL (3.4-5.0); BILIRUBIN - TOTAL 1.57 mg/dL (0.2-1.3); CREATININE - SERUM 1.2 mg/dL (0.6-1.3); POTASSIUM - SERUM 3.5 mmol/L (3.5-5.1); PROTEIN - SERUM 4.4 g/dL (6.4-8.2)
[2018-05-23 04:53] LABS: ANION GAP 8.1 mmol/L (8-16); CARBON DIOXIDE 37.4 mmol/L (21.0-32.0)
[2018-05-23 04:54] LABS: CALCIUM 6.8 mg/dL (8.5-10.1)
[2018-05-23 05:05] LABS: PLATELET ESTIMATE DECREASED
--- NOTE | 2018-05-23 06:50 | NUR ---
PT HG LESS THAN WITH ONE UNIT OF BLOOD ORDERED. BLOOD TRANSFUSION STARTED AT THIS TIME TO LEFT FOREARM. PT WITH BLOODY STOOL X2 SINCE 429. FIRST WAS SMALL BLOODY STOOL WITH PERICARE PROVIDED. PT JUST NOTIFIED ME OF SECOND. GOING TO ROOM TO PROVIDE CARE AT THIS TIME.
--- NOTE | 2018-05-23 07:00 | NUR ---
REC'D REPORT AND RESUMED CARE, SLEEPING AROUSABLE TO VERBAL STIMULI, VSS, DENIES PAIN, ASSESSMENT COMPLETED PER FLOWSHEET, AWAITING CLEAR LIQUID DIET, ICE CHIPS TO BEDSIDE, NO OTHER NEEDS AT THIS TIME
--- NOTE | 2018-05-23 07:08 | NUR ---
PT WITH SMALL BLOODY STOOL WITH PERICARE PROVIDED AND PAD CHANGED. WILL CONTINUE TO OBSERVE
--- NOTE | 2018-05-23 09:05 | NUR ---
MORNING MEDS GIVEN PER JUN FLOWSHEET
--- NOTE | 2018-05-23 11:00 | NUR ---
CALLED TO ROOM, INCONTINENT OF SMALL TARRY DIARRHEA STOOL, SKINCARE AND PARTIAL LINEN CHANGE COMPLETED
--- NOTE | 2018-05-23 12:50 | NUR ---
INCONTINENT OF SMALL TARRY DIARRHEA STOOL, SKINCARE AND LINEN CHANGE COMPLETED, PC TO JOANNA MONTALVO FOR PLANNED CTA AND CL DIET ORDERED
--- NOTE | 2018-05-23 13:20 | NUR ---
TO RADIOLOGY FOR CT WITH PERSONNEL X2, AAO
--- NOTE | 2018-05-23 13:41 | NUR ---
BACK FROM CT, AAO, CONNECTED TO MONITOR, VSS, NO SIGNS OF DISTRESS, IV TO RIGHT HAND INFILTRATED, DC'D WITH CATHETER INTACT
--- NOTE | 2018-05-23 15:00 | NUR ---
CALLED TO ROOM, REQUESTING WATER AND SPRITE, TAKEN TO BEDSIDE, C/O OF PAIN IN LEFT FA, PIV INFILTRATED, IVF STOPPED AND DISCONNECTED, PIV DC'D WITH CATHETER INTACT, TOLERATED WITHOUT DIFFICULTY, ASSESSMENT COMPLETED PER FLOWSHEET, CALL LIGHT IN REACH, NO OTHER NEEDS AT THIS TIME,
--- NOTE | 2018-05-23 15:30 | NUR ---
PC TO DR ARANA RE: PIV'S, ORDER GIVEN FOR CONSULT TO VASCULAR ACCESS NURSE, PICC PLACEMENT AND TO RESTART BUMEX
--- NOTE | 2018-05-23 16:43 | MORECARE ---
CASE MANAGEMENT DISCHARGE SUMMARY PATIENT: ALFREDO SHELTON UNIT: [id number] ADM DATE: 05/20/18 AGE: 62 : 57 SEX: F ROOM/BED: D.[facility] AUTHOR: ZACK BRICENO PHYSICIAN: REFERRING PHYSICIAN: LEXI NATION MD DATE OF SERVICE: 05/23/18 Discharge Plan Patient Name: ALFREDO SHELTON [facility] [facility] 1955 Planned Disposition: Home Anticipated Discharge Date: Discharge Date: Expected LOS: Initial Reviewer: [email or web address] Initial Review Date: 05/20/2018 Generated: 05/23/18 5:43 pm DCPIA - Discharge Planning Initial Assessment Updated by [email or web address]: Rhoda Mendosa on 05/23/18 4:41 pm * Is the patient Alert and Oriented? Yes * How many steps to enter\exit or inside your home? 5-6 * PCP ROSALIND * Pharmacy [facility] * Preadmission Environment Home with Family * ADLs Independent * Other Equipment HAS MEDICAL EQIPMENT AVAILABLE IN BASEMENT IF NEEDED * List name and contact numbers for known caregivers / representatives who currently or will assist patient after discharge: MARKELL LOPEZ [facility]- [phone] * Verbal permission to speak to the caregivers and representatives has been obtained from the patient. N/A * Community resources currently utilized None * Additional services required to return to the preadmission environment? No * Can the patient safely return to the preadmission environment? Yes * Has this patient been hospitalized within the prior 30 days at any hospital? Yes Patient Name: ALFREDO SHELTON Page 93455 at 1643 All edits/amendments must be made on the electronic document DICTATION DATE: 05/23/181641 ORANGE PICKER: АННА 05/23/181641 RPT#: [id number] DC DATE: STATUS: ADM IN [facility] [address] [place] [address] END OF REPORT
[2018-05-23 16:46] LABS: HEMATOCRIT 30.3 % (36.0-48.0); HEMOGLOBIN 9.8 g/dL (12-16)
--- NOTE | 2018-05-23 16:58 | NUR ---
VASCULAR ACCESS NURSE AT BEDSIDE FOR PICC LINE PLACEMENT
--- NOTE | 2018-05-23 16:59 | MORECARE ---
CASE MANAGEMENT DISCHARGE SUMMARY PATIENT: ALFREDO SHELTON UNIT: [id number] ADM DATE: 05/20/18 AGE: 62 : 57 SEX: F ROOM/BED: D.2312 AUTHOR: KAITY,DOC PHYSICIAN: REFERRING PHYSICIAN: LEXI NATION MD DATE OF SERVICE: 05/23/18 Discharge Plan Patient Name: ALFREDO SHELTON [facility]:[place] : 1955 Planned Disposition: Home Anticipated Discharge Date: Discharge Date: Expected LOS: Initial Reviewer: [id number] Initial Review Date: 05/20/2018 Generated: 05/23/18 5:59 pm Comments DCP- Discharge Planning Updated by [email or web address]: Rhoda Mendosa on 05/23/18 3:[address] Patient Name: ALFREDO SHELTON Admission Status: ER Accout number: [id number] Admission Date: 05-20-2018 : 1955 Admission Diagnosis:GASTROINTESTINAL HEMORRHAGE, UNSPECIFIED Attending: LEXI NATION Current LOS: 3 Anticipated DC Date: Planned Disposition: Home Primary Insurance: MEDICAID [place] Discharge Planning Comments: CM met with patient at bedside. Patient states that she lives with her sister Ana. Patient states she plans to return to her home upon discharge. Patient states she has medical equipment in her basement if needed. Patient denies any discharge needs. CM will continue to follow and assist as needed with discharge planning / needs. Online Program Coordinator: Rhoda Mendosa DCPIA - Discharge Planning Initial Assessment Updated by [email or web address]: Rhoda Mendosa on 05/23/18 4:41 pm * Is the patient Alert and Oriented? Yes * How many steps to enter\exit or inside your home? 5-6 * PCP ROSALIND * [facility] * Preadmission Environment Home with Family * ADLs Independent * Other Equipment HAS MEDICAL EQIPMENT AVAILABLE IN BASEMENT IF NEEDED * List name and contact numbers for known caregivers / representatives who currently or will assist patient after discharge: ANA LOPEZ -[facility]STER- [phone] * Verbal permission to speak to the caregivers and representatives has been obtained from the patient. N/A * Community resources currently utilized None * Additional services required to return to the preadmission environment? No * Can the patient safely return to the preadmission environment? Yes * Has this patient been hospitalized within the prior 30 days at any hospital? Yes Last DP export: 05/23/18 3:43 pm Patient Name: ALFREDO SHELTON Page 46737 at 1659 All edits/amendments must be made on the electronic document DICTATION DATE: 05/23/181657 TEACHER INDUSTRIAL ARTS: АННА 05/23/181657 RPT#: [id number] DC DATE: STATUS: ADM IN [facility] [address] [place] [address] END OF REPORT
--- NOTE | 2018-05-23 19:14 | NUR ---
REPORT RECEIVED, CARE ASSUMED. INITIAL ASSESSMENT COMPLETED AT THIS TIME. PT IS RESTING IN BED WITH EYES CLOSED. NO SIGNS OF ACUTE DISTRESS. WILL CONTINUE TO MONITOR.
--- NOTE | 2018-05-23 21:08 | NUR ---
PT IS RESTING IN BED WATCHING TV AT THIS TIME. NO ACUTE CHANGES NOTED. NO SIGNS OF ACUTE DISTRESS. WILL CONTINUE TO MONITOR.
--- NOTE | 2018-05-23 23:15 | NUR ---
REASSESSMENT COMPLETED, SEE FLOWSHEET. PT IS RESTING IN BED WITH EYES CLOSED AT THIS TIME. NO SIGNS OF ACUTE DISTRESS. WILL CONTINUE TO MONITOR.
[2018-05-24] VITALS (20 sets, daily range): BP systolic 96–125; BP diastolic 54–74
--- NOTE | 2018-05-24 01:15 | NUR ---
PT RESTING IN BED WITH EYES CLOSED. NO SIGNS OF ACUTE DISTRESS. WILL CONTINUE TO MONITOR.
--- NOTE | 2018-05-24 03:14 | NUR ---
REASSESSMENT COMPLETED, SEE FLOWSHEET. NO ACUTE CHANGES NOTED. PT IS RESTING IN BED WITH EYES CLOSED. NO SIGNS OF ACUTE DISTRESS. WILL CONTINUE TO MONITOR.
[2018-05-24 04:49] LABS: BASOPHILS 0 % (0-2); EOSINOPHILS 3.9 % (0-7); HEMATOCRIT 27.3 % (36.0-48.0); HEMOGLOBIN 8.8 g/dL (12-16); IMMATURE GRANULOCYTES 0.4 % (0-5); LYMPHOCYTES 14.8 % (15-50); MCH 29.3 pg (26.0-34.0); MCHC 32.2 g/dL (31.0-37.0); MONOCYTES 6.2 % (2-11); NEUTROPHILS 74.7 % (40-80); RDW 16.3 % (11.5-14.5); WBC 7.4 10x3/uL (4.8-10.8)
[2018-05-24 04:58] LABS: PLATELET COUNT 71 10x3/uL (130-400)
--- NOTE | 2018-05-24 05:14 | NUR ---
PT IS RESTING IN BED WITH EYES CLOSED. NO SIGNS OF ACUTE DISTRESS. WILL CONTINUE TO MONITOR.
[2018-05-24 05:17] LABS: ALBUMIN 1.6 g/dL (3.4-5.0); ANION GAP 8.6 mmol/L (8-16); BILIRUBIN - TOTAL 1.98 mg/dL (0.2-1.3); CALCIUM 7.2 mg/dL (8.5-10.1); CARBON DIOXIDE 36.5 mmol/L (21.0-32.0); CREATININE - SERUM 0.9 mg/dL (0.6-1.3); POTASSIUM - SERUM 3.1 mmol/L (3.5-5.1)
--- NOTE | 2018-05-24 07:00 | NUR ---
REC'D REPORT AND RESUMED CARE, SLEEPING, AROUSABLE TO VERBAL STIMULI, VSS, FOLLOWS COMMANDS, DENIES PAIN. ASSESSMENT COMPLETE PER FLOWSHEET, CALL LIGHT IN REACH, NO NEEDS AT THIS TIME
--- NOTE | 2018-05-24 08:00 | NUR ---
CL BREAKFAST TRAY TO BEDSIDE, INDEPENDENT WITH SET UP AND EATING
--- NOTE | 2018-05-24 09:00 | NUR ---
MORNING MEDS GIVEN PER JUN FLOWSHEET
--- NOTE | 2018-05-24 10:22 | NUR ---
NUTRITION F/U PT NOW ON CLEAR LIQUID DIET. WILL CONTINUE TO MONITOR DIET ADVANCEMENT, PT PROGRESS. RD FOLLOWING
--- NOTE | 2018-05-24 14:15 | NUR ---
INCONTINENT OF BLOODY DIARRHEA STOOL, APPROX 100 CC, SKINCARE AND LINEN CHANGED COMPLETED
--- NOTE | 2018-05-24 14:50 | NUR ---
PC TO DR ACUNA RE BLOODY BOWEL MOVEMENT, NEW ORDERS GIVEN, OK TO CONITNUE WITH TRANSFER OUT OF ICU ORDER
--- NOTE | 2018-05-24 15:00 | NUR ---
NO ACUTE CHANGE FROM PREVIOUS ASSESSMENT, VSS, DENIES PAIN. CALL LIGHT IN REACH, VOICES NO NEEDS AT THIS TIME
[2018-05-24 17:00] LABS: HEMATOCRIT 26.4 % (36.0-48.0); HEMOGLOBIN 8.5 g/dL (12-16)
--- NOTE | 2018-05-24 19:30 | NUR ---
REPORT REC'D AND CARE ASSUMED, REC'D PT SIITTING UP IN BED, AWAKE, ALERT, ORIENTED X 4, O2 @ 2LITERS , RIGHT UPPER ARM PICC LINE DRSG CDI SALINE LOCKED, GENERALIZED EDEMA NOTED TO EXT'S, BILAT LOWER EXT'S WITH SCABS/SORES PT STATES " I SCRATCH ALOT I HAVE LIVER FAILURE", AVILA PATENT DRAINING YELLOW URINE, PPP X 4, BED IN LOW POSITION, CALL LIGHT IN REACH. .
--- NOTE | 2018-05-24 20:30 | NUR ---
EVENING MEDS GIVEN, PT COMPLAINS OF BACK PAIN, 2MG MORPHINE GIVEN SLOW IVP AND 1MG HALDOL FOR ANXIETY AND SLEEP
[2018-05-24 23:47] LABS: HEMATOCRIT 29.8 % (36.0-48.0); HEMOGLOBIN 9.7 g/dL (12-16)
--- NOTE | 2018-05-24 23:55 | NUR ---
PT ARRIVED TO ROOM 1211, PT IS AAO, UP WITH X1 ASSIST. PT WT IS 185 LBS PT HAS SCABS AND SORES ON BODY. RIGHT LOWER LEG HAS LARGE SCAB. AVILA NOTED WITH STRAW COLORED/PINK URINE. RIGHT UPPER ARM PICC S/L S1S2 RRR. LUNGS DIMINISHED SLIGHT CRACKLES IN LOWER LOBES. PT BOWEL SOUNDS HYPOACTIVE LUQ,RLQ,RUQ ACTIVE LLQ. DENIES TENDERNESS. ROUNDED ABDOMEN, FIRM. PT STATES BM TODAY WITH SOME BLOOD. LAB CAME, FLORENCE H&H FROM PICC LINE. FLUSHED ALL LUMENS. ONLY ONE LUMEN FLORENCE BACK. PT DENIES ANY NEEDS. NO S/S OF DISTRESS. PT BEDLOW AND CALL LIGHT IN REACH. WILL CPOC
--- NOTE | 2018-05-25 00:23 | NUR ---
FSBS IS 134 NO INSULIN NEEDED PER SLIDING SCALE. PT WILL CALL FOR ASSIST WHEN NEEDED. WILL CPOC
[2018-05-25 00:25] VITALS: BP 152/68
--- NOTE | 2018-05-25 03:48 | NUR ---
PT ASLEEP, RESP EVEN AND UNLABORED. BEDLOW AND CALL LIGHT IN REACH. NO S/S OF DISTRESS. BEDLOW AND CALL LIGHT IN REACH. WILL CPOC
[2018-05-25 06:19] LABS: BASOPHILS 0.1 % (0-2); EOSINOPHILS 4.8 % (0-7); HEMATOCRIT 28.6 % (36.0-48.0); HEMOGLOBIN 9.3 g/dL (12-16); IMMATURE GRANULOCYTES 0.3 % (0-5); LYMPHOCYTES 11.8 % (15-50); MCH 29.4 pg (26.0-34.0); MCHC 32.5 g/dL (31.0-37.0); MCV 90.5 fL (80.0-100.0); MEAN PLATELET VOLUME 10.7 fL (7.4-10.4); MONOCYTES 6.1 % (2-11); NEUTROPHILS 76.9 % (40-80); PLATELET COUNT 79 10x3/uL (130-400); RBC 3.16 10x6/uL (4.00-5.40); RDW 15.1 % (11.5-14.5); WBC 7.7 10x3/uL (4.8-10.8)
[2018-05-25 06:28] VITALS: BP 146/60
[2018-05-25 06:36] LABS: ALBUMIN 1.7 g/dL (3.4-5.0); ANION GAP 5.9 mmol/L (8-16); BILIRUBIN - TOTAL 2.49 mg/dL (0.2-1.3); CALCIUM 7.1 mg/dL (8.5-10.1); CARBON DIOXIDE 37.9 mmol/L (21.0-32.0); PROTEIN - SERUM 4.2 g/dL (6.4-8.2)
[2018-05-25 07:09] LABS: CREATININE - SERUM 1.2 mg/dL (0.6-1.3)
[2018-05-25 07:10] LABS: POTASSIUM - SERUM 2.8 mmol/L (3.5-5.1)
--- NOTE | 2018-05-25 07:16 | NUR ---
PT FSBS IS 140 NO INSULIN NEEDED. WILL CPOC
[2018-05-25 07:43] LABS: PLATELET ESTIMATE DECREASED
--- NOTE | 2018-05-25 07:49 | NUR ---
CALLED THE [address] BOYER/SUMIT. REQUESTED THE FAMILY AND CONSUMER SCIENCES TEACHER DR/LEATHER FLESHER TO BE PAGED TO REPORT CRITICAL LAB
--- NOTE | 2018-05-25 07:53 | NUR ---
MARIO MAST RETURNED THE PAGE AND GAVE TELEPHONE ORDER TO ORDER AND FOLLOW ELECTROLYTE PROTOCAL FOR THE CRITICAL K+ OF 2.8
[2018-05-25 08:14] VITALS: BP 104/61
--- NOTE | 2018-05-25 10:04 | MORECARE ---
CASE MANAGEMENT DISCHARGE SUMMARY PATIENT: ALFREDO SHELTON UNIT: [id number] ADM DATE: 05/20/18 AGE: 62 : 57 SEX: F ROOM/BED: D.1211 AUTHOR: KAITY,DOC PHYSICIAN: REFERRING PHYSICIAN: LEXI NATION MD DATE OF SERVICE: 05/25/18 Discharge Plan Patient Name: ALFREDO SHELTON [facility]:[place] : 1955 Planned Disposition: Home Anticipated Discharge Date: Discharge Date: Expected LOS: Initial Reviewer: [email or web address] Initial Review Date: 05/20/2018 Generated: 05/25/18 11:04 am Comments DCP- Discharge Planning Updated by [email or web address]: Rhoda Mendosa on 05/23/18 3:[address] Patient Name: ALFREDO SHELTON Admission Status: ER Accout number: [id number] Admission Date: 05-20-2018 : 1955 Admission Diagnosis:GASTROINTESTINAL HEMORRHAGE, UNSPECIFIED Attending: LEXI NATION Current LOS: 3 Anticipated DC Date: Planned Disposition: Home Primary Insurance: MEDICAID [place] Discharge Planning Comments: CM met with patient at bedside. Patient states that she lives with her sister Ana. Patient states she plans to return to her home upon discharge. Patient states she has medical equipment in her basement if needed. Patient denies any discharge needs. CM will continue to follow and assist as needed with discharge planning / needs. Fulling Machine Operator: Rhoda Mendosa DCPIA - Discharge Planning Initial Assessment Updated by [id number]: Rhoda Mendosa on 05/23/18 4:41 pm * Is the patient Alert and Oriented? Yes * How many steps to enter\exit or inside your home? 5-6 * PCP ROSALIND * [facility]acy [facility] * Preadmission Environment Home with Family * ADLs Independent * Other Equipment HAS MEDICAL EQIPMENT AVAILABLE IN BASEMENT IF NEEDED * List name and contact numbers for known caregivers / representatives who currently or will assist patient after discharge: ANA LOPEZ -SISTER- [phone] * Verbal permission to speak to the caregivers and representatives has been obtained from the patient. N/A * Community resources currently utilized None * Additional services required to return to the preadmission environment? No * Can the patient safely return to the preadmission environment? Yes * Has this patient been hospitalized within the prior 30 days at any hospital? Yes Last DP export: 05/23/18 3:59 pm Patient Name: ALFREDO SHELTON Page 30750 at 1004 All edits/amendments must be made on the electronic document DICTATION DATE: 05/25/18 1003 FIFTH HAND: АННА 05/25/18 1003 RPT#: [id number] DC DATE: STATUS: ADM IN [facility] [address] [place] [address] END OF REPORT
[2018-05-25 11:52] VITALS: BP 108/64
[2018-05-25 15:23] LABS: HEMATOCRIT 31.5 % (36.0-48.0); HEMOGLOBIN 10.1 g/dL (12-16)
[2018-05-25 16:07] VITALS: BP 107/62
--- NOTE | 2018-05-25 17:28 | NUR ---
SPOKE TO PRO/DR CONNORS, VERBAL ORDER TO START BLADDER TRAINING AND REMOVE THE AVILA.
--- NOTE | 2018-05-25 19:28 | NUR ---
PT RESTING IN BED. NAME AND DATE PLACED ON BOARD. PT ON ROOM AIR. AAO. WATCHING TV, HAS NOURISHMENT IN REACH. DENIES ANY NEEDS AT THIS TIME. NO S/S OF DISTRESS. PT WILL CALL FOR ASSIST WHEN NEEDED. WILL CPOC
[2018-05-25 20:00] VITALS: BP 130/46
--- NOTE | 2018-05-25 20:05 | NUR ---
PT RESTING IN BED. AAO, STATES SHE HAS SMALL BOWEL ACCIDENTS, PT DENIES ANY AT THIS TIME. DENIES ANY NEEDS. EDUCATION GIVEN ON PROTONIX. PT VERBLIZED UNDERSTANDING. PT PROTESTING AGAINST NURSE TAKING OUT AVILA, STATED THAT NURSE WILL BLADDER TRAIN THROUGH OUT NIGHT ORDERED. PT STATES WHAT ABOUT HER NOT GETTING UP WITH OUT NEEDING HELP. ASSURED PT THAT NURSE AND TECH WILL BE AVALIBLE TO ASSIST TO RESTROOM. NURSE GOT PT UP WHEN TRANSFERED TO [facility] 3 AND GOT WEIGHT. ALTHOUGH THERE WAS A NURSE AT EACH SIDE PT DID BEAR WEIGHT TO LEGS. PT VERBALIZED UNDERSTANDING. STARTED BLADDER TRAINING NOW. CLAMPED AVILA. WILL CPOC
[2018-05-26 00:10] VITALS: BP 112/62
--- NOTE | 2018-05-26 01:16 | NUR ---
PT FSBS IS 155, 2 UNITS OF INSULIN GIVEN ORDERED. UNCLAMPED AVILA AND LET BLADDER DRAIN. CLAMPED IT BACK. PT DENIES ANY NEEDS. NO S/S OF DISTRESS. WILL CPOC
[2018-05-26 03:58] VITALS: BP 107/60
[2018-05-26 06:36] LABS: BASOPHILS 0.1 % (0-2); EOSINOPHILS 4.4 % (0-7); HEMATOCRIT 28.3 % (36.0-48.0); HEMOGLOBIN 9.1 g/dL (12-16); IMMATURE GRANULOCYTES 0.4 % (0-5); LYMPHOCYTES 13.9 % (15-50); MCH 29.1 pg (26.0-34.0); MCHC 32.2 g/dL (31.0-37.0); MCV 90.4 fL (80.0-100.0); MEAN PLATELET VOLUME 10.5 fL (7.4-10.4); MONOCYTES 6.9 % (2-11); NEUTROPHILS 74.3 % (40-80); PLATELET COUNT 84 10x3/uL (130-400); RBC 3.13 10x6/uL (4.00-5.40); RDW 14.6 % (11.5-14.5); WBC 7.1 10x3/uL (4.8-10.8)
[2018-05-26 07:02] LABS: ALBUMIN 1.6 g/dL (3.4-5.0); ANION GAP 5.8 mmol/L (8-16); BILIRUBIN - TOTAL 2.46 mg/dL (0.2-1.3); CALCIUM 7.5 mg/dL (8.5-10.1); CARBON DIOXIDE 38.3 mmol/L (21.0-32.0); CREATININE - SERUM 1.2 mg/dL (0.6-1.3); POTASSIUM - SERUM 3.1 mmol/L (3.5-5.1); PROTEIN - SERUM 4.2 g/dL (6.4-8.2)
[2018-05-26 07:37] LABS: PLATELET ESTIMATE DECREASED
--- NOTE | 2018-05-26 07:43 | NUR ---
AVILA REMOVED. NURSE RECEIVING REPORT AWARE. PT WILL CALL FOR ASSIST WHEN NEEDED
--- NOTE | 2018-05-26 08:00 | NUR ---
ROUNDING DONE WITH PATIENT VOICING NEED TO EAT MORE THATN FULL LIQUIDS. RIGHT UPPER ARM TRIPLE LUMEN PICC SEEN WITH C/D/I DRESSING. SALINE LOCK. FLUSHES WELL BUT HARD TO DRAW FROM. ON ROOM AIR. ON EP, K+ IS 3.1. WILL COVER WITH ORAL SUPPLEMENTTS. GENERALIZED EDEMA SEEN TO ALL EXTREMITIES. AVILA CATH WAS REMOVED LAST SHIFT, INSTRUCTED PATIENT TO CALL FOR ASSIST TO RESTROOM.
[2018-05-26 08:23] VITALS: BP 107/58
[2018-05-26 08:34] LABS: HEMATOCRIT 29.7 % (36.0-48.0); HEMOGLOBIN 9.6 g/dL (12-16)
[2018-05-26 13:17] VITALS: BP 103/61
--- NOTE | 2018-05-26 13:22 | NUR ---
RE-DRAW OF POTASSIUM IS 3.7.
--- NOTE | 2018-05-26 13:52 | NUR ---
THERAPY LEFT A WALKER IN THE ROOM FOR PATIENT TO USE TO GO TO RESTROOM. I INFORCED TO PATIENT TO NOT GET UP AND USE THE WALKER BY HERSELF. SHE STATES THAT SHE WILL USE THE CALL LIGHT FOR ALL NEEDS AND ASSIST TO RESTROOM.
[2018-05-26 14:54] LABS: HEMATOCRIT 32.3 % (36.0-48.0); HEMOGLOBIN 10.3 g/dL (12-16)
--- NOTE | 2018-05-26 16:18 | NUR ---
CALLED TO ROOM PAST PATIENT USING BATHROOM (TWO PERSON ASSIST OFF TOLIET). RIGHT UPPER RM PICC IS BLEEDING. USING STERILE TECHNIQUE, I CHANGED THE DRESSING OUT. THERE WAS A SMALL BLOOD CLOT THAT CAME OUT FROM UNDER THE STATLOCK WHICH I WAS UNABLE TO BREAK LOOSE TO REMOVE. DATED.
[2018-05-26 16:54] VITALS: BP 109/64
--- NOTE | 2018-05-26 18:02 | NUR ---
NOBLOOD SEEN TO STOOL ON BM TODAY. NO MORE BLEEDING SEEN TO RIGHT UPPER ARM PICC LINE. WILL OCNTINUE TO MONITOR. STILL AWAITING DR DUNHAM TO MAKE ROUNDS TO SEE ABOUT DISCHARGE.
--- NOTE | 2018-05-26 19:00 | NUR ---
PT ALERT AND ORIENTED WHEN ENTERING THE ROOM. PT REQUESTS BED FLOREZ AT THIS TIME. PT USED BED FLOREZ AND HAD BOWEL MOVEMENT THAT WAS BROWN IN COLOR AND THICK BUT NOT FORMED. NO BLOOD IN STOOL. PT HAS RIGHT UPPER ARM PICC WITH DRESSING APPLIED OVER. DRIED BLOOD NOTED TO BOTTOM PORTION OF DRAIN. PT HAS BILATERAL LOWER EXTREMETY SCABS AND SORES WELL ON BUTTOCKS. PT PRESENTS WITH GENERALIZED EDEMA WELL. PT HAS REDNESS TO GROIN AREA. CALMOSEPTINE APPLIED. PT DENIES NEEDS FOR FUTHER CARE AT THIS TIME. PT VERBALIZES HOW TO USE CALL LIGHT. CALL LIGHT IS IN REACH OF PATIENT.
[2018-05-26 20:10] VITALS: BP 116/66
[2018-05-27 00:54] VITALS: BP 94/60
[2018-05-27 05:03] VITALS: BP 102/59
[2018-05-27 06:08] LABS: BASOPHILS 0.2 % (0-2); EOSINOPHILS 3.4 % (0-7); HEMATOCRIT 28.5 % (36.0-48.0); HEMOGLOBIN 9.1 g/dL (12-16); IMMATURE GRANULOCYTES 0.6 % (0-5); LYMPHOCYTES 14.5 % (15-50); MCHC 31.9 g/dL (31.0-37.0); MCV 90.8 fL (80.0-100.0); MEAN PLATELET VOLUME 11.1 fL (7.4-10.4); MONOCYTES 7.5 % (2-11); NEUTROPHILS 73.8 % (40-80); PLATELET COUNT 95 10x3/uL (130-400); RBC 3.14 10x6/uL (4.00-5.40); RDW 14.7 % (11.5-14.5)
[2018-05-27 06:50] LABS: ALBUMIN 1.7 g/dL (3.4-5.0); ANION GAP 8.1 mmol/L (8-16); BILIRUBIN - TOTAL 2.51 mg/dL (0.2-1.3); CALCIUM 7.6 mg/dL (8.5-10.1); CARBON DIOXIDE 33.4 mmol/L (21.0-32.0); CREATININE - SERUM 1.4 mg/dL (0.6-1.3); POTASSIUM - SERUM 3.5 mmol/L (3.5-5.1); PROTEIN - SERUM 4.6 g/dL (6.4-8.2)
--- NOTE | 2018-05-27 07:00 | NUR ---
RECEIVED REPORT. ASSUMED CARE OF PATIENT. PATIENT SITTING UP IN BED. CALL LIGHT WITHIN REACH. NO DISTRESS. DENIES NEEDS AT THIS TIME.
--- NOTE | 2018-05-27 07:01 | NUR ---
ASSESSED DURING THE NIGHT. PT WAS ASLEEP WITH NO DISTRESS NOTED. EVEN UNLABORED RESPIRATIONS.
[2018-05-27 09:21] VITALS: BP 110/53
--- NOTE | 2018-05-27 09:27 | NUR ---
REFUSED ANUSOL SUPPOSITORY AT THIS TIME. NO DISTRESS.
--- NOTE | 2018-05-27 11:34 | NUR ---
FSBS 224. 4 UNITS HUMULIN ADMINISTERED PER SLIDING SCALE.
[2018-05-27 12:13] VITALS: BP 123/71
--- NOTE | 2018-05-27 12:48 | NUR ---
PT DENIED WANTING HOUSECALLS OR HOME HEALTH. WILL BEGIN DISCHARGE PAPERS NOW.
--- NOTE | 2018-05-27 14:25 | NUR ---
DISCHARGE TEACHING PROVIDED AND PAPERS SIGNED. PT VERBALIZED UNDERSTANDING AND DENIES ANY QUESTIONS OR CONCERNS. ALL BELONGINGS COLLECTED AND WITH PTS SISTER WHOM IS HERE TO TAKE HER HOME. PICC LINE NO LONGER NEEDED. REMOVED WITH CATHETER TIP FULLY INTACT @40CM USING HOSPITAL POLICY WITH BODY LINE FINISHER RAVINDRA AT BEDSIDE. NO ISSUES NOTED AT SITE. PT IS NOW BEING DISCHARGED.
--- NOTE | 2018-05-29 08:20 | MORECARE ---
CASE MANAGEMENT DISCHARGE SUMMARY PATIENT: ALFREDO SHELTON UNIT: [id number] ADM DATE: 05/20/18 AGE: 62 : 57 SEX: F ROOM/BED: D.1211 AUTHOR: KAITY,DOC PHYSICIAN: REFERRING PHYSICIAN: LEXI NATION MD DATE OF SERVICE: 05/29/18 Discharge Plan Patient Name: ALFREDO SHELTON Facility[facility]:[place] : 1955 Planned Disposition: Home Anticipated Discharge Date: 05/27/18 Discharge Date: 05/27/2018 Expected LOS: 7 Initial Reviewer: [id number] Initial Review Date: 05/20/2018 Generated: 05/29/18 9:20 am Comments DCP- Discharge Planning Updated by [email or web address]: Rhoda Mendosa on 05/23/18 3:[address] Patient Name: ALFREDO SHELTON Admission Status: ER Accout number: [id number] Admission Date: 05-20-2018 : 1955 Admission Diagnosis:GASTROINTESTINAL HEMORRHAGE, UNSPECIFIED Attending: LEXI NATION Current LOS: 3 Anticipated DC Date: Planned Disposition: Home Primary Insurance: MEDICAID [place] Discharge Planning Comments: CM met with patient at bedside. Patient states that she lives with her sister Ana. Patient states she plans to return to her home upon discharge. Patient states she has medical equipment in her basement if needed. Patient denies any discharge needs. CM will continue to follow and assist as needed with discharge planning / needs. Charging Board Operator: Rhoda Mendosa DCPIA - Discharge Planning Initial Assessment Updated by [id number]: Rhoda Mendosa on 05/23/18 4:41 pm * Is the patient Alert and Oriented? Yes * How many steps to enter\exit or inside your home? 5-6 * PCP ROSALIND * [facility]acy [facility] * Preadmission Environment Home with Family * ADLs Independent * Other Equipment HAS MEDICAL EQIPMENT AVAILABLE IN BASEMENT IF NEEDED * List name and contact numbers for known caregivers / representatives who currently or will assist patient after discharge: ANA LOPEZ -SISTER- [phone] * Verbal permission to speak to the caregivers and representatives has been obtained from the patient. N/A * Community resources currently utilized None * Additional services required to return to the preadmission environment? No * Can the patient safely return to the preadmission environment? Yes * Has this patient been hospitalized within the prior 30 days at any hospital? Yes Last DP export: 05/25/18 9:04 am Patient Name: ALFREDO SHELTON Page 21384 at 0820 All edits/amendments must be made on the electronic document DICTATION DATE: 05/29/18819 SYSTEMS COORDINATOR: АННА 05/29/18819 RPT#: [id number] DC DATE:05/27/18 STATUS: DIS IN [facility] [id number] [place] [address] END OF REPORT
== END 2018-05-27 14:23 | disposition home or self-care (01) | DRG 368 ==
LOC: D.ER 19:03 → D.EDHOLD 20:16 → D.ICU 20:16 → D.M3 05-24 23:48
PROVIDERS: Anesthesiology; Emergency Medicine; Family Medicine; Internal Medicine Gastroenterology; ADMIT Internal Medicine Nephrology
PROC: 0W3P8ZZ Control Bleeding in Gastrointestinal Tract, Via Natural or Artificial Opening Endoscopic (ICD-10-PCS; principal; 2018-05-20 08:30)
PROC: 06L38CZ Occlusion of Esophageal Vein with Extraluminal Device, Via Natural or Artificial Opening Endoscopic (ICD-10-PCS; 2018-05-21)
PROC: 05HY33Z Insertion of Infusion Device into Upper Vein, Percutaneous Approach (ICD-10-PCS; 2018-05-23)
DX: I85.01 Esophageal varices with bleeding (principal); R57.1 Hypovolemic shock; E87.2 Acidosis; D62 Acute posthemorrhagic anemia; N17.9 Acute kidney failure, unspecified; R55 Syncope and collapse; E87.5 Hyperkalemia; K70.30 Alcoholic cirrhosis of liver without ascites; E11.65 Type 2 diabetes mellitus with hyperglycemia; K21.0 Gastro-esophageal reflux disease with esophagitis; K29.70 Gastritis, unspecified, without bleeding